=== PATIENT | female | born 2000 | race Caucasian/White ===

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

== ENCOUNTER 2023-12-06 07:34 | Inpatient (IN) ==
[2023-12-06] MEDS ORDERED: LIDOCAINE 1% LOCAL 20 ML VIAL INFIL PRN (08:05)
[2023-12-06] MEDS ORDERED: OXYTOCIN 30 UNITS/NSS 30 UNITS/500 ML BAG IV PRN (08:05)
--- NOTE | 2023-12-06 08:24 | History & Physical Report ---
Date of Service December 06, 2023 Assessment & Plan (1) 40 weeks gestation of : Plan: Admit, routine labs Misoprostol 50 mcg p.o. every 4 hours Epidural if patient request Anticipate spontaneous vaginal delivery (2) Gestational hypertension: Plan: Based on elevated blood pressure of 140/86 on 11/15/2023 at clinic Admission blood pressure 140/89 PIH labs pending (3) Hepatitis C antibody test positive: Plan: Repeat repeat testing to be performed today, most likely false positive Patient agreeable Admission and Anticipated Discharge Date Admission Date: December 06, 2023 History of Present Illness Chief Complaint: IOL Primary Care Provider: Shawanda Moraes DO Patient is a pleasant 22-year-old -0-1-0 at 40 weeks and 3 days dated by LMP consistent with a 6-week ultrasound. Patient denies contractions, leaking of fluid or vaginal bleeding. Notes good movement. Denies signs or symptoms of preeclampsia. Patient's course has been complicated by with an IUD in which the IUD was removed at early gestation, elevated blood pressure at 37 weeks, hepatitis C antibody positive. Patient denies any history of STDs, asthma, diabetes, high blood pressure outside of . Patient has not had excessive weight gain this (61 lbs) Allergies Allergy/AdvReac Type Severity Reaction Status Date / Time Sulfa (Sulfonamide Allergy Severe Hives Verified 12/06/23 08:03 Antibiotics) nickel AdvReac Intermediate Itching Verified 12/06/23 08:03 Home Medications Medication Instructions Recorded Confirmed Type Pepcid 1 tab PO BID 12/06/23 12/06/23 History 1 tab PO DAILY 12/06/23 12/06/23 History Patient History Medical History Remove/insert IUD UTI (urinary tract infection) Acute pharyngitis OB History NEW ORDER CLERK History Denies any history of STDs including HSV Physical Exam Constitutional: WD/WN, vitals as above Respiratory: normal respiratory effort, lungs clear to auscultation Cardiovascular: RRR, no murmur, no edema Gastrointestinal (Abdomen): normal bowel sounds, soft, nontender, no hepatosplenomegaly Cephalic by Luis's, estimated weight 3500 Genitourinary: External genitalia: No masses or lesions seen Cervix: 0/0/-3 Results & Data Vital Signs (Past 12 Hours) Vital Signs Pulse BP 12/06/23 07:47 126 H 140/89 Monitoring External Monitor heart tracing: Baseline 130, moderate variability, positive accelerations no decelerations Tocodynamometer No contract (2) Gestational hypertension Trimester: third trimester Qualified Code(s): O13.3 - Gestational [- induced] hypertension without significant proteinuria, third trimester
[2023-12-06] MEDS: miSOPROStoL 50 MCG TAB PO SCH (08:51)
[2023-12-06 08:53] LABS: Hematocrit (blood only) 42.3 % (37.0-47.0); Hemoglobin 14.7 g/dl (12.0-16.0); Mean Corpuscular Hemoglobin 30.4 pg (25.0-34.0); Mean Corpuscular Hgb Conc 34.8 g/dL (32.0-36.0); Mean Corpuscular Volume 87.4 fL (80.0-100.0); Mean Platelet Volume 11.6 fL (9.4-12.4); Platelet Count 244 K/uL (130-400); RDW Coefficient of Variation 13.9 % (11.5-14.5); Red Blood Count 4.84 M/uL (4.20-5.40); White Blood Count 15.56 K/ul (4.8-10.8)
[2023-12-06 09:10] LABS: Alanine Aminotransferase 11 U/L (7-52); Albumin Globulin Ratio 1.2 (0.9-2); Albumin Level 3.6 gm/dl (3.4-5.0); Alkaline Phosphatase 166 U/L (34-104); Anion Gap 8 (3-11); Aspartate Aminotransferase 15 U/L (13-39); BUN Creatinine Ratio 17.4 (10-20); Bilirubin,Total 0.4 mg/dl (0.2-1.0); Blood Urea Nitrogen 8 mg/dl (6-23); Calcium 9.4 mg/dl (8.6-10.3); Carbon Dioxide 19 mmol/L (21-32); Chloride 106 mmol/L (98-107); Est GFR (African American) > 150.0 ml/min; Est GFR (Non-African American) 140.2 ml/min; Globulin 2.9 gm/dl (2.5-4.0); Glucose 67 mg/dl (70-99(Fasting)); Potassium 3.9 mmol/L (3.5-5.1); Sodium 133 mmol/L (136-145); Total Protein 6.5 gm/dl (6.0-8.3)
[2023-12-06 09:25] LABS: Creatinine Urine Random 38.1 mg/dl; Protein Creatinine Ratio Urine 0.1 (0-0.2); Total Protein Urine Random 4.4 mg/dl (0-11.9)
--- OUTSIDE RECORDS SUMMARY | 2023-12-06 10:49 | External Medical Summary | Summary of Care ---
Author Name Unknown Organization [facility] Address [address] [facility] [place] [address] Phone [phone] Care Team Providers Care Property Inspector Name Role Phone Shawanda Moraes Primary Care Provider Encounter Details Date Type Department Care Team (Late st Contact Info) Description 11/08/2023 8:15 AM EDT Office Visit Gynecology/Obstetric s [facility] [address] [place] [address] Yoana Clement CRNP [address] [place] [phone] High-risk in third trimester*; Vapes nicotine containing substance; IUD ; Hepatitis C antibody test positive Allergies Active Allergy Reactions Criticality Noted Date Comments Nickel 10/13/2020 Skin turns blue, blisters Sulfa Antibiotics 05/19/2023 Other Reaction(s): Hives Sulfamethoxazole-Trimethopri m 05/19/2023 Other Reaction(s): Facial swelling and hives documented as of this encounter (statuses as of 11/08/2023) Medications Medication Sig Dispensed Refills Start Date End Date Status Plus 27-1 MG Oral TabletIndications:IUD Take 1 Tablet by mouth daily. 90 Tablet 3 04/12/2023 Active documented as of this encounter (statuses as of 11/08/2023) Active Problems Problem Noted Date Diagnosed Date Hepatitis C antibody test positive 05/24/2023 Overview: Neg viral load 05/24/23 Vapes nicotine containing substance 05/23/2023 High-risk 05/23/2023 IUD 05/23/2023 Overview: IUD removed at 6 wks GA PTSD (post-traumatic stress disorder) 09/19/2020 Overview: Post abortive (2018) PTSD Estimated Date of Delivery Comme nts Yes 12/03/2023 Based on last me nstrual period of 02/26/2023 documented as of this encounter (statuses as of 11/08/2023) Resolved Problems Problem Noted Date Diagnosed Date Resolved Date Family history of thalassemia 05/23/2023 05/23/2023 Overview: FOB's mother documented as of this encounter (statuses as of 11/08/2023) Immunizations Name Administration Dates Next Due TDAP (age 10 and older)(Boostrix) 09/27/2023 documented as of this encounter Social History Tobacco Use Types Packs/Day Years Used Date Smoking Tobacco: Every Day Vaporizer Smokeless Tobacco: Never Alcohol Use Standard Drinks/Week Comments Yes 0 (1 standard drink = 0.6 oz pur e alcohol) Hunger Vital Sign Answer Date Recorded Within the past 12 months, y ou worried that your food would run out before you got the money to buy more. Never true 07/07/20 23 Within the past 12 months, t he food you bought just didn't last and you didn't have money to get more. Never true 07/07/2023 [place] Depression Scale Answer Date Recorded [place] Depression Scale Total 0 11/01/2023 The thought of harming myself has occurred to me . Never 11/01/2023 Estimated Date of Delivery Comme nts Yes 12/03/2023 Based on last me nstrual period of 02/26/2023 Sex and Gender Information Value Date Recorded Sex Assigned at Female 05/23/2023 10:15 AM EDT Gender Identity Female 05/23/2023 10:15 AM EDT Sexual Orientation Straight 05/23/2023 10 :15 AM EDT Job Start Date Occupation Industry Not on file Not on file Not on file documented as of this encounter Last Filed Vital Signs Vital Sign Reading Time Taken Comments Blood Pressure 110/74 11/08/2023 8:21 AM EDT Pulse - - Temperature - - Respiratory Rate - - Oxygen Saturation - - Inhaled Oxygen Concentration - - Weight 99.8 kg (220 lb) 11/08/2023 8:21 AM EDT Height 160 cm (5' 3") 11/08/2023 8:21 AM EDT Body Mass Index 38.97 11/08/2023 8:21 AM EDT documented in this encounter Progress Notes * Yoana Clement CRNP - 11/08/2023 8:48 AM EDT 36w3d Having pelvic pain, pubic symphysis pain. Suggested chiropractor, exercise ball. No other issues. Baby is active. No contractions, bleeding, LOF. GBS today. Mercantile Reporter Documentation Provider requested chief controller center. Name of chief controller center: Izzy * Izzy Vail LPN - 11/08/2023 8:21 AM EDT 36w3d Needs gbs documented in this encounter Plan of Treatment Upcoming Encounters Date Type Department Care Team (Late st Contact Info) Description 11/15/2023 8:15 AM EDT Office Visit Gynecology/Obstetrics [facility] [address] [place] [address] Yoana Clement CRNP [address] [place] [address] 11/22/2023 8:15 AM EDT Office Visit Gynecology/Obstetrics [facility] [address] [place] [address] Yoana Clement CRNP [address] [place] [address] 11/29/2023 8:15 AM EDT Office Visit Gynecology/Obstetrics [facility] [address] [place] [address] Yoana Clement CRNP [address] [place] [phone] Pending Results Name Type Priority Associated Diagnoses Date /Time GROUP B STREP CULTURE/PCR Lab Routine High-risk in third trimester 11/08/2023 8:51 AM EDT Scheduled Orders Name Type Priority Associated Diagnoses Orde r Schedule GROUP B STREP CULTURE/PCR Lab Routine High-risk in third trimester Expected: 11/08/2023, Expires: 11/07/2024 Health Maintenance Due Date Last Done Comments Pneumococcal Vaccine: Pediat rics (0 to 5 Years) and At-Risk Patients (6 to 64 Years) (1 of 2 - PCV) 12/16/2005 Depression Screening 2011 GARDASIL-HPV IMMUNIZATION SE TIFFANY (1 - 3-dose series) 12/16/2014 COVID-19 Vaccine ( - 2022-2 4 season) 2023 Influenza Vaccine (FLU shot) (#1) 2023 Gonorrhea / Chlamydia Screen 05/23/2024 05/23/2023 Pap Smear 05/23/2026 05/23/2023 DTaP,Tdap,and Td Vaccines (8 - Td or Tdap) 09/27/2033 09/27/2023, 12/19/2013, 10/29/2004, Additional history exists Hepatitis B Completed 12/19/2000, 08/1999, 03/03/2000 MENINGOCOCCAL (MENACTRA/MENVEO) Completed 7, 12/19/2013 documented as of this encounter Medical Devices Implanted Type Area Hoop Maker Helper Machine Device Identifier Shelf Expiration Date Model / Serial / Lot Reta 13.5 Iud Implanted:Qt y: 1 on 10/16/2020 by Olayinka Acosta MD at OR [facility] N/A: Uterus DELICIA MARIA EUGENIA : [employer] 04/28/2021 [id number] / / [id number] documented as of this encounter Visit Diagnoses Diagnosis High-risk in third trimester- Primary Vapes nicotine containing substance IUD Other specified complication of , unspecified as to episode of care Hepatitis C antibody test positive Other and unspecified nonspecific immunological findings documented in this encounter Care Teams Property Inspector Relationship Specialty Start Date End Date Shawanda Moraes DO [address] [place] [id number] PCP - General Family Medicine 04/12/23 documented as of this encounter
--- OUTSIDE RECORDS SUMMARY | 2023-12-06 10:49 | External Medical Summary | Summary of Care ---
Author Name Unknown Organization [facility] Address [address] [facility] [place] [address] Phone [phone] Care Team Providers Care Cutter Woodwind Reeds Name Role Phone Shawanda Moraes Primary Care Provider Encounter Details Date Type Department Care Team (Late st Contact Info) Description 11/08/2023 8:15 AM EDT Office Visit Gynecology/Obstetric s [facility] [address] [place] [address] Yoana Clement CRNP [address] [place] [address] High-risk in third trimester*; Vapes nicotine containing [...] money to get more. Never true 07/07/2023 [place] Depression Scale Answer Date Recorded [place] Depression Scale Total 0 11/01/2023 The thought [...] active. No contractions, bleeding, LOF. GBS today. Lombardi Developer Documentation Provider requested stevedoring supervisor. Name of stevedoring supervisor: Izzy * Izzy Vail LPN - 11/08/2023 8:21 AM EDT 36w3d Needs gbs documented in this encounter Plan of Treatment Upcoming Encounters Date Type Department Care Team (Late st Contact Info) Description 11/15/2023 8:15 AM EDT Office Visit Gynecology/Obstetrics [facility] [address] [place] [address] Yoana Clement CRNP [address] [place] [address] 11/22/2023 8:15 AM EDT Office Visit Gynecology/Obstetrics [facility] [address] [place] [address] Yoana Clement CRNP [address] [place] [address] 11/29/2023 8:15 AM EDT Office Visit Gynecology/Obstetrics [facility] [address] [place] [address] Yoana Clement CRNP [address] [place] [address] Pending Results Name Type Priority Associated Diagnoses [...] this encounter Medical Devices Implanted Type Area Chute Builder Device Identifier Shelf Expiration Date Model / Serial / Lot Reta 13.5 Iud Implanted:Qt y: 1 on 10/16/2020 by Olayinka Acosta MD at OR [facility] N/A: Uterus DELICIA MARIA EUGENIA : [employer] 04/28/2021 [id number] / / [id number] documented as of this encounter Visit Diagnoses Diagnosis High-risk in third trimester- Primary Vapes nicotine containing substance IUD Other specified complication of , unspecified as to episode of care Hepatitis C antibody test positive Other and unspecified nonspecific immunological findings documented in this encounter Care Teams Cutter Woodwind Reeds Relationship Specialty Start Date End Date Shawanda Moraes DO [address] [place] [id number] PCP - General Family Medicine 04/12/23 documented as of this encounter
--- OUTSIDE RECORDS SUMMARY | 2023-12-06 10:49 | External Medical Summary | Summary of Care ---
Author Name Unknown Organization [facility] Address [address] [facility] [place] [address] Phone [phone] Care Team Providers Care Molded Goods Embossing Press Operator Name Role Phone Shawanda Moraes Primary Care Provider Reason for Visit * Reason Comments Blood Pressure Check Encounter Details Date Type Department Care Team (Late st Contact Info) Description 11/17/2023 11:00 AM EDT Immunization/Inj ection Gynecology/Obstetrics [facility] [address] [place] [address] Gw, Nurse Obgyn Injection [address] [facility] [place] [address] BP check* Allergies Active Allergy Reactions Criticality Noted Date Comments Nickel 10/13/2020 Skin turns blue, blisters Sulfa Antibiotics 05/19/2023 Other Reaction(s): Hives Sulfamethoxazole-Trimethopri m 05/19/2023 Other Reaction(s): Facial swelling and hives documented as of this encounter (statuses as of 11/17/2023) Medications Medication Sig Dispensed Refills Start Date End Date Status Plus 27-1 MG Oral TabletIndications:IUD Take 1 Tablet by mouth daily. 90 Tablet 3 04/12/2023 Active documented as of this encounter (statuses as of 11/17/2023) Active Problems Problem Noted Date Diagnosed Date [...] as of this encounter (statuses as of 11/17/2023) Resolved Problems Problem Noted Date Diagnosed Date Resolved Date Family history of thalassemia 05/23/2023 05/23/2023 Overview: FOB's mother documented as of this encounter (statuses as of 11/17/2023) Immunizations Name Administration Dates Next Due TDAP (age 10 and older)(Boostrix) 09/27/2023 documented as of this encounter Social History Tobacco Use Types Packs/Day Years Used Date Smoking Tobacco: Every Day Vaporizer Smokeless Tobacco: Never Tobacco Cessation:Ready to Q uit: Not Asked; Counseling Given: Not Answered Alcohol Use Standard Drinks/Week Comments Yes 0 [...] money to get more. Never true 07/07/2023 [place] Depression Scale Answer Date Recorded [place] Depression Scale Total 0 11/01/2023 The thought [...] Sign Reading Time Taken Comments Blood Pressure 118/72 11/17/2023 11:19 AM EDT Pulse - - Temperature - - Respiratory Rate - - Oxygen Saturation - - Inhaled Oxygen Concentration - - Weight - - Height - - Body Mass Index - - documented in this encounter Nursing Notes * Katharina Canales LPN - 11/17/2023 11:16 AM EDT Pt here today for BP check. BP taken by Liss Magana MA. I spoke with pt who denies any new onset of LÓPEZ, vision changes, unexplained swelling. + movement. Urine dip completed which was negative for protein. Advised pt to call with any onset of new symptoms, decreased movement, and will repeat BP next week at JACQUELIN visit. Pt verbalized understanding. Pt also dropping off FMLA paperwork. She is requesting it be faxed to number on forms and she will pickle water pump operator copy when she comes in next week. documented in this encounter Plan of Treatment Upcoming Encounters Date Type Department Care Team (Late st Contact Info) Description 11/22/2023 8:15 AM EDT Office Visit Gynecology/Obstetrics [facility] [address] [place] [address] Yoana Clement CRNP [address] [place] [phone] 11/29/2023 8:15 AM EDT Office Visit Gynecology/Obstetrics [facility] [address] [place] [address] Yoana Clement CRNP [address] [place] [address] Health Maintenance Due Date Last Done Comments Pneumococcal Vaccine: Pediat rics (0 to 5 Years) and At-Risk Patients (6 to 64 Years) (1 of 2 - PCV) 12/16/2005 Depression Screening 2011 GARDASIL-HPV IMMUNIZATION SE TIFFANY (1 - 3-dose series) 12/16/2014 COVID-19 Vaccine (1 - 2022-2 4 season) 2023 Influenza Vaccine (FLU shot) (#1) 2023 Gonorrhea / Chlamydia Screen 05/23/2024 05/23/2023 Pap Smear 05/23/2026 05/23/2023 DTaP,Tdap,and Td Vaccines (8 - Td or Tdap) 09/27/2033 09/27/2023, 12/19/2013, 10/29/2004, Additional history exists Hepatitis B Completed 12/19/2000, 08/1999, 03/03/2000 MENINGOCOCCAL (MENACTRA/MENVEO) Completed 7, 12/19/2013 documented as of this encounter Medical Devices Implanted Type Area Back Facer Device Identifier Shelf Expiration Date Model / Serial / Lot Reta 13.5 Iud Implanted:Qt y: 1 on 10/16/2020 by Olayinka Acosta MD at OR [facility] N/A: Uterus DELICIA MARIA EUGENIA : [employer] 04/28/2021 [id number] / / [id number] documented as of this encounter Procedures Procedure Name Priority Date/Time Associated Diagnosis Comments URINALYSIS, POINT OF CARE (ENTER/EDIT) Routine 11/17/2023 BP check documented in this encounter Results * URINALYSIS, POINT OF CARE (ENTER/EDIT) (11/17/2023) Color, Urine Yellow Yellow or Light Yellow Clarity, Urine Clear Clear Glucose, Urine Negative Negative mg/dL Bilirubin, Urine Negative Negative Ketone, Urine Negative Negative mg/dL Specific [place], Urine 1.020 1.003 - 1.030 Blood, Urine Negative Negative pH, Urine 7.0 5.0 - 7.5 units Protein, Urine Negative Negative mg/dL Urobilinogen, Urine 0.2 0.2 - 1.0 mg/dL Nitrite, Urine Negative Negative Esterase, Urine Large Negative Urine 11/17/2023 Olayinka Acosta MD LAB POINT OF CARE TE ST ENTER/EDIT ORDERABLES documented in this encounter Visit Diagnoses Diagnosis BP check- Primary Screening for hypertension documented in this encounter Care Teams Molded Goods Embossing Press Operator Relationship Specialty Start Date End Date Shawanda Moraes DO [address] [place] [address] Dr [address] [place] [address], [place] [address] PCP - General Family Medicine 04/12/23 documented as of this encounter
--- OUTSIDE RECORDS SUMMARY | 2023-12-06 10:49 | External Medical Summary ---
Author Name Unknown Address Unknown Organization [id number][place] [facility] [place] [address] [place] [address] Laboratory Report Ordering Provider Test Date Status BASSAMNICOLAS 11/15/2023 08:42:53 Final Normal: <150 mg/ g creatinine
High: 150-500 mg/g creatinine
Very High: >500 mg/g creatinine
Nephrotic: >3000 mg/g creatinine Observation Date Value Abnormality Reference (Units ) Status Protein/Creatinine [Ratio] in Urine 11/15/2023 08:42:53 115 <150 (mg/g ) Final Protein, Urine 11/15/2023 08:42:53 9 (mg/dL) Final Creatinine, Urine 11/15/2023 08:42:53 78 (mg/dL) Final Performing Location [facility] [place] [address] [place] [address]
--- OUTSIDE RECORDS SUMMARY | 2023-12-06 10:49 | External Medical Summary | Summary of Care ---
Author Name Unknown Organization [facility] Address [address] [facility] [place] [address] Phone [phone] Care Team Providers Care Project Management Manager Name Role Phone Shawanda Moraes Primary Care Provider Reason for Visit * Reason Comments Return Visit Encounter Details Date Type Department Care Team (Late st Contact Info) Description 11/15/2023 8:15 AM EDT Office Visit Gynecology/Obstetric s [facility] [address] [place] [address] Yoana Clement CRNP [address] [place] [address] High-risk in third trimester*; Vapes nicotine containing substance; IUD ; Hepatitis C antibody test positive Allergies Active Allergy Reactions Criticality Noted Date Comments Nickel 10/13/2020 Skin turns blue, blisters Sulfa Antibiotics 05/19/2023 Other Reaction(s): Hives Sulfamethoxazole-Trimethopri m 05/19/2023 Other Reaction(s): Facial swelling and hives documented as of this encounter (statuses as of 11/15/2023) Medications Medication Sig Dispensed Refills Start Date End Date Status Plus 27-1 MG Oral TabletIndications:IUD Take 1 Tablet by mouth daily. 90 Tablet 3 04/12/2023 Active documented as of this encounter (statuses as of 11/15/2023) Active Problems Problem Noted Date Diagnosed Date [...] as of this encounter (statuses as of 11/15/2023) Resolved Problems Problem Noted Date Diagnosed Date Resolved Date Family history of thalassemia 05/23/2023 05/23/2023 Overview: FOB's mother documented as of this encounter (statuses as of 11/15/2023) Immunizations Name Administration Dates Next Due TDAP [...] money to get more. Never true 07/07/2023 [place] Depression Scale Answer Date Recorded [place] Depression Scale Total 0 11/01/2023 The thought [...] Sign Reading Time Taken Comments Blood Pressure 140/86 11/15/2023 8:11 AM EDT 138/86 10 mins later Pulse - - Temperature - - Respiratory Rate - - Oxygen Saturation - - Inhaled Oxygen Concentration - - Weight 101.2 kg (223 lb) 11/15/2023 8:1 1 AM EDT Height 160 cm (5' 3") 11/15/2023 8:11 AM EDT Body Mass Index 39.5 11/15/2023 8:11 AM EDT documented in this encounter Progress Notes * Yaona Clement CRNP - 11/15/2023 8:37 AM EDT 37w3d BLE edema continues. Wore knee high compression stockings and got swelling behind her knee. Wore crew-length compression socks and had significant swelling above this, up her simmons. Explained that thelower the stocking, the more swelling she will notice. BP mildly elevated today, repeat minimally improved. Trace proteinuria. Will send protein/creat ratio. Return in 2 days for BP check. Baby is active. No contractions, bleeding, LOF. Asking for IOL, scheduled for after 40w. SHOAIB [place] * Izzy Vail LPN - 11/15/2023 8:11 AM EDT 37w3d LE swelling Has been using compression hoses seems to make everything worse documented in this encounter Plan of Treatment Upcoming Encounters Date Type Department Care Team (Late st Contact Info) Description 11/17/2023 11:00 AM EDT Immunization/Injec tion Gynecology/Obstetrics [facility] [address] [place] [address] Gw, Nurse Obgyn Injection [address] [place] [address] 11/22/2023 8:15 AM EDT Office Visit Gynecology/Obstetrics [facility] [address] [place] [address] Yoana Clement CRNP [address] [place] [address] 11/29/2023 8:15 AM EDT Office Visit Gynecology/Obstetrics [facility] [address] [place] [address] Yoana Clement CRNP [address] [place] [address] Pending Results Name Type Priority Associated Diagnoses Date /Time PROTEIN/ CREATININE RATIO, URINE Lab Routine High-risk in third trimester 11/15/2023 8:42 AM EDT Health Maintenance Due Date Last Done Comments Pneumococcal Vaccine: Pediat rics (0 to 5 Years) and At-Risk Patients (6 to 64 Years) (1 of 2 - PCV) 12/16/2005 Depression Screening 2011 GARDASIL-HPV IMMUNIZATION SE TIFFANY (1 - 3-dose series) 12/16/2014 COVID-19 Vaccine (2022-2 4 season) 2023 Influenza Vaccine (FLU shot) (#1) 2023 Gonorrhea / Chlamydia Screen 05/23/2024 05/23/2023 Pap Smear 05/23/2026 05/23/2023 DTaP,Tdap,and Td Vaccines (8 - Td or Tdap) 09/27/2033 09/27/2023, 12/19/2013, 10/29/2004, Additional history exists Hepatitis B Completed 12/19/2000, 08/1999, 03/03/2000 MENINGOCOCCAL (MENACTRA/MENVEO) Completed 7, 12/19/2013 documented as of this encounter Medical Devices Implanted Type Area Ruby On Rails Software Developer Device Identifier Shelf Expiration Date Model / Serial / Lot Reta 13.5 Iud Implanted:Qt y: 1 on 10/16/2020 by Olayinka Acosta MD at OR [facility] N/A: Uterus DELICIA MARIA EUGENIA : [employer] 04/28/2021 [id number] / / [id number] documented as of this encounter Visit Diagnoses Diagnosis High-risk in third trimester- Primary Vapes nicotine containing substance IUD Other specified complication of , unspecified as to episode of care Hepatitis C antibody test positive Other and unspecified nonspecific immunological findings documented in this encounter Care Teams Project Management Manager Relationship Specialty Start Date End Date Shawanda Moraes DO [address] [place] [address] [place] [address] PCP - General Family Medicine 04/12/23 documented as of this encounter
--- OUTSIDE RECORDS SUMMARY | 2023-12-06 10:49 | External Medical Summary | Summary of Care ---
Author Name Unknown Organization [facility] Address [address] [facility] [place] [address] Phone [phone] Care Team Providers Care Manometer Technician Name Role Phone Shawanda Moraes Primary Care Provider Reason for Visit * Reason Comments Return Visit Encounter Details Date Type Department Care Team (Late st Contact Info) Description 11/22/2023 8:15 AM EDT Office Visit Gynecology/Obstetric s [facility] [address] [facility] [place] [address] Yoana Clement CRNP [address] [facility] [place] [address] High-risk in third trimester*; Vapes nicotine containing substance; IUD ; Hepatitis C antibody test positive Allergies Active Allergy Reactions Criticality Noted Date Comments Nickel 10/13/2020 Skin turns blue, blisters Sulfa Antibiotics 05/19/2023 Other Reaction(s): Hives Sulfamethoxazole-Trimethopri m 05/19/2023 Other Reaction(s): Facial swelling and hives documented as of this encounter (statuses as of 11/22/2023) Medications Medication Sig Dispensed Refills Start Date End Date Status Plus 27-1 MG Oral TabletIndications:IUD Take 1 Tablet by mouth daily. 90 Tablet 3 04/12/2023 Active documented as of this encounter (statuses as of 11/22/2023) Active Problems Problem Noted Date Diagnosed Date [...] as of this encounter (statuses as of 11/22/2023) Resolved Problems Problem Noted Date Diagnosed Date Resolved Date Family history of thalassemia 05/23/2023 05/23/2023 Overview: FOB's mother documented as of this encounter (statuses as of 11/22/2023) Immunizations Name Administration Dates Next Due TDAP [...] money to get more. Never true 07/07/2023 [place] Depression Scale Answer Date Recorded [place] Depression Scale Total 0 11/01/2023 The thought [...] Sign Reading Time Taken Comments Blood Pressure 132/78 11/22/2023 8:04 AM EDT Pulse - - Temperature - - Respiratory Rate - - Oxygen Saturation - - Inhaled Oxygen Concentration - - Weight 101.2 kg (223 lb) 11/22/2023 8:04 AM EDT Height 160 cm (5' 3") 11/22/2023 8:04 AM EDT Body Mass Index 39.5 11/22/2023 8:04 AM EDT documented in this encounter Progress Notes * Yoana Clement CRNP - 11/22/2023 8:32 AM EDT 38w3d Still swollen, though not necessarily worse than last week. Weight stable. BP is fine. Baby is active. Had some cramping yesterday, but not any contractions. Denies bleeding. IOL scheduled for 12/05. SHOAIB Monroy documented in this encounter Nursing Notes * Shauna Kruse LPN - 11/22/2023 8:08 AM EDT 38w3d Denies concerns documented in this encounter Plan of Treatment Upcoming Encounters Date Type Department Care Team (Late st Contact Info) Description 11/29/2023 8:15 AM EDT Office Visit Gynecology/Obstetrics [facility] [address] [place] [address] Yoana Clement CRNP [address] [place] [address] Health Maintenance Due Date Last Done Comments [...] Completed 12/19/2000, 08/1999, 03/03/2000 MENINGOCOCCAL (MENACTRA/MENVEO) Completed , 12/19/2013 documented as of this encounter Medical Devices Implanted Type Area Heading Pinner Device Identifier Shelf Expiration Date Model / Serial / Lot Reta 13.5 Iud Implanted:Qt y: 1 on 10/16/2020 by Olayinka Acosta MD at OR [facility] N/A: Uterus DELICIA MARIA EUGENIA : [employer] 04/28/2021 [id number] / / [id number] documented as of this encounter Visit Diagnoses Diagnosis High-risk in third trimester- Primary Vapes nicotine containing substance IUD Other specified complication of , unspecified as to episode of care Hepatitis C antibody test positive Other and unspecified nonspecific immunological findings documented in this encounter Care Teams Manometer Technician Relationship Specialty Start Date End Date Shawanda Moraes DO [address] [facility] [address] [place] [address], [place] [address] PCP - General Family Medicine 04/12/23 documented as of this encounter
--- OUTSIDE RECORDS SUMMARY | 2023-12-06 10:49 | External Medical Summary ---
Author Name Unknown Address Unknown Organization K01:[facility] [place] [address] [place] [address] [place] [address] Laboratory Report Ordering Provider Test Date Status NICOLAS BANEGAS 11/08/2023 08:51:49 Final Observation Date Value Abnormality Reference (Units ) Status Streptococcus agalactiae DNA [Presence] in Specimen by TRENT with probe detection 11/08/2023 08:51:49 Negative Negative Final No Group B Streptococcus det ected by culture-enhanced PCR (amplified probe).
The collection of vaginal/rectal swab specimen combinations (FDA approved specimen type) is optimal for the detection of Group B Streptococcus. Single source collection (vaginal only or rectal only) or alternate specimen sources may lead to false negative results. Performing Location [facility] [place] [address] [place] [address]
--- OUTSIDE RECORDS SUMMARY | 2023-12-06 10:49 | External Medical Summary | Summary of Care ---
Author Name Unknown Organization [facility] Address [address] [facility] [place] [address] Phone [phone] Care Team Providers Care Tinware Lithograph Press Operator Name Role Phone Shawanda Moraes Primary Care Provider Reason for Visit * Reason Comments Return Visit Encounter Details Date Type Department Care Team (Late st Contact Info) Description 11/29/2023 8:15 AM EDT Office Visit Gynecology/Obstetric s [facility] [address] [place] [address] Yoana Clement CRNP [address] [facility] [place] [address] High-risk in third trimester*; Vapes nicotine containing substance; IUD ; Hepatitis C antibody test positive Allergies Active Allergy Reactions Criticality Noted Date Comments Nickel 10/13/2020 Skin turns blue, blisters Sulfa Antibiotics 05/19/2023 Other Reaction(s): Hives Sulfamethoxazole-Trimethopri m 05/19/2023 Other Reaction(s): Facial swelling and hives documented as of this encounter (statuses as of 11/29/2023) Medications Medication Sig Dispensed Refills Start Date End Date Status Plus 27-1 MG Oral TabletIndications:IUD Take 1 Tablet by mouth daily. 90 Tablet 3 04/12/2023 Active documented as of this encounter (statuses as of 11/29/2023) Active Problems Problem Noted Date Diagnosed Date [...] as of this encounter (statuses as of 11/29/2023) Resolved Problems Problem Noted Date Diagnosed Date Resolved Date Family history of thalassemia 05/23/2023 05/23/2023 Overview: FOB's mother documented as of this encounter (statuses as of 11/29/2023) Immunizations Name Administration Dates Next Due TDAP [...] money to get more. Never true 07/07/2023 [place] Depression Scale Answer Date Recorded [place] Depression Scale Total 0 11/01/2023 The thought [...] Sign Reading Time Taken Comments Blood Pressure 132/76 11/29/2023 8:04 AM EDT Pulse - - Temperature - - Respiratory Rate - - Oxygen Saturation - - Inhaled Oxygen Concentration - - Weight 102.5 kg (226 lb) 11/29/2023 8:04 AM EDT Height 160 cm (5' 3") 11/29/2023 8:04 AM EDT Body Mass Index 40.03 11/29/2023 8:04 AM EDT documented in this encounter Progress Notes * Yoana Clement CRNP - 11/29/2023 8:35 AM EDT 39w3d No new concerns. Very uncomfortable. Swelling continues. Baby is active, though mostly overnight. Discussed/encouraged kick counts. No contractions, bleeding, LOF. IOL 12/05 Chin Strap Maker Documentation Provider requested transitional nurse. Name of transitional nurse: SHOAIB Camargo documented in this encounter Nursing Notes * Shauna Kruse LPN - 11/29/2023 8:10 AM EDT 39w3d Denies concerns Membrane sweep if able. documented in this encounter Plan of Treatment Health Maintenance Due Date Last Done Comments Pneumococcal Vaccine: Pediat rics (0 to 5 Years) and At-Risk Patients (6 to 64 Years) (1 of 2 - PCV) 12/16/2005 Depression Screening 2011 GARDASIL-HPV IMMUNIZATION SE TIFFANY (1 - 3-dose series) 12/16/2014 COVID-19 Vaccine (2022-2 4 season) 2023 Influenza Vaccine (FLU shot) (Season Ended) 2024 Gonorrhea / Chlamydia Screen 05/23/2024 05/23/2023 Pap Smear 05/23/2026 05/23/2023 DTaP,Tdap,and Td Vaccines (8 - Td or Tdap) 09/27/2033 09/27/2023, 12/19/2013, 10/29/2004, Additional history exists Hepatitis B Completed 12/19/2000, 08/1999, 03/03/2000 MENINGOCOCCAL (MENACTRA/MENVEO) Completed 7, 12/19/2013 documented as of this encounter Medical Devices Implanted Type Area Group Leader Semiconductor Processing Device Identifier Shelf Expiration Date Model / Serial / Lot Reta 13.5 Iud Implanted:Qt y: 1 on 10/16/2020 by Olayinka Acosta MD at OR [facility] N/A: Uterus DELICIA MARIA EUGENIA : [employer] 04/28/2021 [id number] / / [id number] documented as of this encounter Visit Diagnoses Diagnosis High-risk in third trimester- Primary Vapes nicotine containing substance IUD Other specified complication of , unspecified as to episode of care Hepatitis C antibody test positive Other and unspecified nonspecific immunological findings documented in this encounter Care Teams Tinware Lithograph Press Operator Relationship Specialty Start Date End Date Shawanda Moraes DO 6 [facility] [address] [place] [address] PCP - General Family Medicine 04/12/23 documented as of this encounter
--- OUTSIDE RECORDS SUMMARY | 2023-12-06 10:50 | External Medical Summary | Summary of Care ---
Author Name Unknown Organization [facility] Address [address] [facility] [place] [address] Phone [phone] Care Team Providers Care Firer Watertender Name Role Phone Shawanda Moraes Primary Care Provider Reason for Visit * Reason Comments Return Visit Encounter Details Date Type Department Care Team (Late st Contact Info) Description 10/19/2023 10:30 AM EST Office Visit Gynecology/Obstetric s [facility] [address] [place] [address] Yoana Clement CRNP [address] [place] [address] High-risk in third trimester*; Vapes nicotine containing substance; IUD ; Hepatitis C antibody test positive Allergies Active Allergy Reactions Criticality Noted Date Comments Nickel 10/13/2020 Skin turns blue, blisters Sulfa Antibiotics 05/19/2023 Other Reaction(s): Hives Sulfamethoxazole-Trimethopri m 05/19/2023 Other Reaction(s): Facial swelling and hives documented as of this encounter (statuses as of 10/19/2023) Medications Medication Sig Dispensed Refills Start Date End Date Status Plus 27-1 MG Oral TabletIndications:IUD Take 1 Tablet by mouth daily. 90 Tablet 3 04/12/2023 Active documented as of this encounter (statuses as of 10/19/2023) Active Problems Problem Noted Date Diagnosed Date [...] as of this encounter (statuses as of 10/19/2023) Resolved Problems Problem Noted Date Diagnosed Date Resolved Date Family history of thalassemia 05/23/2023 05/23/2023 Overview: FOB's mother documented as of this encounter (statuses as of 10/19/2023) Immunizations Name Administration Dates Next Due TDAP [...] money to get more. Never true 07/07/2023 [place] Depression Scale Answer Date Recorded [place] Depression Scale Total 0 05/23/2023 The thought of harming myself has occurred to me . Never 05/23/2023 Estimated Date of Delivery Comme nts Yes [...] Sign Reading Time Taken Comments Blood Pressure 118/76 10/19/2023 10:30 AM EST Pulse - - Temperature - - Respiratory Rate - - Oxygen Saturation - - Inhaled Oxygen Concentration - - Weight 95.3 kg (210 lb) 10/19/2023 10:30 AM EST Height 160 cm (5' 3") 10/19/2023 10:30 AM EST Body Mass Index 37.2 10/19/2023 10:30 AM EST documented in this encounter Progress Notes * Yoana Clement CRNP - 10/19/2023 10:51 AM EST 33w4d Feeling well overall. Numbness/tingling in hands. Itching has resolved, bile acids WNL. Baby is active, discussed changes in movement. Denies contractions or bleeding. Baby feels transverse by Leopolds. SHOAIB Mon[place] * Izzy Vail LPN - 10/19/2023 10:30 AM EST 33w4d Denies any concerns documented in this encounter Plan of Treatment Upcoming Encounters Date Type Department Care Team (Late st Contact Info) Description 11/01/2023 8:30 AM EST [facility] [address] [place] [address] ManfrederAgnes CRNP [address] [place] [address] 11/08/2023 8:15 AM EDT Office Visit Gynecology/Obstetrics [facility] [address] [place] [address] Yoana Clement CRNP [address] [place] [address] 11/15/2023 8:15 AM EDT Office Visit Gynecology/Obstetrics [facility] [address] [place] [address] Yoana Clement CRNP [address] [place] [address] 11/22/2023 8:15 AM EDT Office Visit Gynecology/Obstetrics [facility] [address] [place] [address] Yoana Clement CRNP [address] [place] [address] 11/29/2023 8:15 AM EDT Office Visit Gynecology/Obstetrics [facility] [address] [place], [place] [address] Yoana Clement CRNP [address] [place] [address] Health Maintenance Due Date Last Done Comments [...] this encounter Medical Devices Implanted Type Area Casino Host Device Identifier Shelf Expiration Date Model / Serial / Lot Reta 13.5 Iud Implanted:Qt y: 1 on 10/16/2020 by Olayinka Acosta MD at OR [facility] N/A: Uterus DELICIA MARIA EUGENIA : [employer] 04/28/2021 [id number] / / [id number] documented as of this encounter Visit Diagnoses Diagnosis High-risk in third trimester- Primary Vapes nicotine containing substance IUD Other specified complication of , unspecified as to episode of care Hepatitis C antibody test positive Other and unspecified nonspecific immunological findings documented in this encounter Care Teams Firer Watertender Relationship Specialty Start Date End Date Shawanda Moraes DO 6 [facility] [address], [place] [address] PCP - General Family Medicine 04/12/23 documented as of this encounter
--- OUTSIDE RECORDS SUMMARY | 2023-12-06 10:50 | External Medical Summary ---
Author Name Unknown Address Unknown Organization : Laboratory Report Ordering Provider Test Date Status CLEO BANEGASSAAD 10/05/2023 15:16:01 Final Observation Date Value Abnormality Reference (Units ) Status Bile acid [Moles/volume] in Serum --fasting 10/05/2023 15:16:01 SEE BELOW Final TESTS--------- ----RESULTS--------UNITS--REF. RANGE---
Cholic Acid <0.5 umol/L < OR = 1.8
Deoxycholic Acid <0.5 umol/L < OR = 2.4
Chenodeoxycholic Acid 0.7 umol/L < OR = 3.1
Total Bile Acids <1.5 umol/L < OR = 6.8
This test was developed and its analytical
performance characteristics have been determined
by [facility]. It has not been cleared or
approved by FDA. This assay has been validated
pursuant to the CLIA regulations and is used for
clinical purposes.
Test performed by [facility]
[id number],
[place] [address]

Parts Sales Counterperson: Gill Sandoval MD,PHD,JAYANT Performing Location
--- OUTSIDE RECORDS SUMMARY | 2023-12-06 10:50 | External Medical Summary | Summary of Care ---
Author Name Unknown Organization [facility] Address [address] [facility] [address] Phone [phone] Care Team Providers Care Umbrella Supervisor Name Role Phone EduarShawanda howard Primary Care Provider Encounter Details Date Type Department Care Team (Late st Contact Info) Description 09/27/2023 Telephone Gynecology/Obstetrics [facility] Re[facility] [address] [place] [address] Yoana Clement CRNP [address] [place] [address] Allergies Active Allergy Reactions Criticality Noted Date Comments Nickel 10/13/2020 Skin turns blue, blisters Sulfa Antibiotics 05/19/2023 Other Reaction(s): Hives Sulfamethoxazole-Trimethopri m 05/19/2023 Other Reaction(s): Facial swelling and hives documented as of this encounter (statuses as of 09/30/2023) Medications Medication Sig Dispensed Refills Start Date End Date Status Plus 27-1 MG Oral TabletIndications:IUD Take 1 Tablet by mouth daily. 90 Tablet 3 04/12/2023 Active documented as of this encounter (statuses as of 09/30/2023) Active Problems Problem Noted Date Diagnosed Date [...] as of this encounter (statuses as of 09/30/2023) Resolved Problems Problem Noted Date Diagnosed Date Resolved Date Family history of thalassemia 05/23/2023 05/23/2023 Overview: FOB's mother documented as of this encounter (statuses as of 09/30/2023) Immunizations Name Administration Dates Next Due TDAP [...] money to get more. Never true 07/07/2023 [place] Depression Scale Answer Date Recorded [place] Depression Scale Total 0 05/23/2023 The thought [...] on file documented as of this encounter Miscellaneous Notes * Telephone Encounter - Marisol Ashley OSA - 09/30/2023 11:01 AM EST Pt scheduled, wants to keep both appt at this time to decide which one she wants to keep then will call back * Telephone Encounter - Elisa Vicente RN - 09/29/2023 3:14 PM EST Marisol- can you look into this and see if you can get her a spot? * Telephone Encounter - Bhavani Barreto LPN - 09/29/2023 3:10 PM EST [place] pt. Bhavani Barreto LPN 09/29/2023 3:10 PM * Telephone Encounter - Jagruti Barrios OSA - 09/27/2023 11:33 AM EST No available appts next week in [place] with a senior process analyst, please review and schedule * Telephone Encounter - Whitney Mccarthy OSA - 09/27/2023 9:25 AM EST Please call patient to schedule 1 week valentine and needs an appointment over in [place] with Web Mobile Designer documented in this encounter Plan of Treatment Upcoming Encounters Date Type Department Care Team (Late st Contact Info) Description 10/05/2023 1:45 PM EST Office Visit Gynecology/Obstetrics [facility] [address] [place] [address] Rosa Bhakta CNM [address] [facility] [address] 10/05/2023 2:15 PM EST Office Visit Gynecology/Obstetrics [facility] Reyes [address] [place] [address] Yoana Clement CRNP [address] [place] [address] Health Maintenance Due Date Last Done Comments COVID-19 Vaccine (#1) 06/17/2000 Pneumococcal Vaccine: Pediat rics (0 to 5 Years) and At-Risk Patients (6 to 64 Years) (1 - PCV) 12/16/2005 GARDASIL-HPV IMMUNIZATION SE TIFFANY (1 - 2-dose series) 12/16/2010 Depression Screening 2011 Influenza Vaccine (FLU shot) (#1) 2023 Gonorrhea / Chlamydia Screen 05/23/2024 05/23/2023 Pap Smear 05/23/2026 05/23/2023 DTaP,Tdap,and Td Vaccines (8 - Td or Tdap) 09/27/2033 09/27/2023, 12/19/2013, 10/29/2004, Additional history exists Hepatitis B Completed 12/19/2000, 08/1999, 03/03/2000 MENINGOCOCCAL (MENACTRA/MENVEO) Completed 7, 12/19/2013 documented as of this encounter Medical Devices Implanted Type Area Passenger Tire Builder Device Identifier Shelf Expiration Date Model / Serial / Lot Reta 13.5 Iud Implanted:Qt y: 1 on 10/16/2020 by Olayinka Acosta MD at OR [facility] N/A: Uterus DELICIA MARIA EUGENIA : [employer] 04/28/2021 [id number] / / [id number] documented as of this encounter Care Teams Umbrella Supervisor Relationship Specialty Start Date End Date Shawanda Moraes DO [address] [facility] [address] [place], [place] [address] PCP - General Family Medicine 04/12/23 documented as of this encounter
--- OUTSIDE RECORDS SUMMARY | 2023-12-06 10:50 | External Medical Summary | Summary of Care ---
Author Name Unknown Organization [facility] Address [address] [facility] [address] Phone [phone] Care Team Providers Care Rn Ante Partum Name Role Phone Shawanda Moraes Primary Care Provider Reason for Visit * Reason Comments Return Visit Encounter Details Date Type Department Care Team (Late st Contact Info) Description 09/27/2023 9:00 AM EST Office Visit Gynecology/Obstetric s [facility] [address] [place] [address] Yoana Clement CRNP [address] [facility] [place] [address] High-risk in third trimester*; Vapes nicotine containing substance; IUD ; Hepatitis C antibody test positive; Need for prophylactic vaccination with combined hxcqwxmshj-xqpkxsv-gi rtussis (DTP) vaccine Allergies Active Allergy Reactions Criticality Noted Date Comments Nickel 10/13/2020 Skin turns blue, blisters Sulfa Antibiotics 05/19/2023 Other Reaction(s): Hives Sulfamethoxazole-Trimethopri m 05/19/2023 Other Reaction(s): Facial swelling and hives documented as of this encounter (statuses as of 09/27/2023) Medications Medication Sig Dispensed Refills Start Date End Date Status Plus 27-1 MG Oral TabletIndications:IUD Take 1 Tablet by mouth daily. 90 Tablet 3 04/12/2023 Active documented as of this encounter (statuses as of 09/27/2023) Active Problems Problem Noted Date Diagnosed Date [...] as of this encounter (statuses as of 09/27/2023) Resolved Problems Problem Noted Date Diagnosed Date Resolved Date Family history of thalassemia 05/23/2023 05/23/2023 Overview: FOB's mother documented as of this encounter (statuses as of 09/27/2023) Immunizations Name Administration Dates Next Due TDAP [...] money to get more. Never true 07/07/2023 [place] Depression Scale Answer Date Recorded [place] Depression Scale Total 0 05/23/2023 The thought [...] Sign Reading Time Taken Comments Blood Pressure 140/80 09/27/2023 9:04 AM EST Pulse - - Temperature - - Respiratory Rate - - Oxygen Saturation - - Inhaled Oxygen Concentration - - Weight 91.2 kg (201 lb) 09/27/2023 9:04 AM EST Height 160 cm (5' 3") 09/27/2023 9:04 AM EST Body Mass Index 35.61 09/27/2023 9:04 AM EST documented in this encounter Progress Notes * Yoana Clement CRNP - 09/27/2023 9:19 AM EST 30w3d No concerns. May be interested in pilot steam yacht delivery at [facility]. Advised they do not have 24/7 pilot steam yacht coverage. Would recommend she make an appt with a pilot steam yacht to [facility]. Baby is active, thinks she changed positions. BP slightly elevated today. Will return in one week for recheck. Trace proteinuria. TDAP today. SHOAIB [place] * Izzy Vail LPN - 09/27/2023 9:04 AM EST 30w3d Denies any issues documented in this encounter Nursing Notes * Izzy Vail LPN - 09/27/2023 9:41 AM EST Patient here for tdap injection. Patient doing well no complaints. Injection given IM as ordered. Patient tolerated well. Patient to follow up as directed. Patient instructed to call if any complications. Patient verbalized understanding of instructions given and her follow up appt for 2 weeks Injection site: Left Deltoid Medication Source: Dispensed stock medication documented in this encounter Plan of Treatment [...] this encounter Medical Devices Implanted Type Area Retail Support Manager Device Identifier Shelf Expiration Date Model / Serial / Lot Reta 13.5 Iud Implanted:Qt y: 1 on 10/16/2020 by Olayinka Acosta MD at OR [facility] N/A: Uterus DELICIA MARIA EUGENIA : [employer] 04/28/2021 [id number] / / [id number] documented as of this encounter Visit Diagnoses Diagnosis High-risk in third trimester- Primary Vapes nicotine containing substance IUD Other specified complication of , unspecified as to episode of care Hepatitis C antibody test positive Other and unspecified nonspecific immunological findings Need for prophylactic vaccination with combined zdgzvsusyo-sfvjsrg-cieonbcei (DTP) vaccine documented in this encounter Care Teams Rn Ante Partum Relationship Specialty Start Date End Date Shawanda Moraes DO [address] [place] [address] [place] [address] PCP - General Family Medicine 04/12/23 documented as of this encounter
--- OUTSIDE RECORDS SUMMARY | 2023-12-06 10:50 | External Medical Summary | Summary of Care ---
Author Name Unknown Organization [facility] Address [address] [facility] [place] [address] Phone [phone] Care Team Providers Care Pipe Line Maintenance Supervisor Name Role Phone Shawanda Moraes Primary Care Provider Reason for Visit * Reason Comments Return Visit Encounter Details Date Type Department Care Team (Late st Contact Info) Description 10/05/2023 2:15 PM EST Office Visit Gynecology/Obstetric s [facility] [address] [place] [address] Yoana Clement CRNP [address] [place] [address] High-risk in third trimester*; Vapes nicotine containing substance; IUD ; Hepatitis C antibody test positive; Pruritus Allergies Active Allergy Reactions Criticality Noted Date Comments Nickel 10/13/2020 Skin turns blue, blisters Sulfa Antibiotics 05/19/2023 Other Reaction(s): Hives Sulfamethoxazole-Trimethopri m 05/19/2023 Other Reaction(s): Facial swelling and hives documented as of this encounter (statuses as of 10/05/2023) Medications Medication Sig Dispensed Refills Start Date End Date Status Plus 27-1 MG Oral TabletIndications:IUD Take 1 Tablet by mouth daily. 90 Tablet 3 04/12/2023 Active documented as of this encounter (statuses as of 10/05/2023) Active Problems Problem Noted Date Diagnosed Date [...] as of this encounter (statuses as of 10/05/2023) Resolved Problems Problem Noted Date Diagnosed Date Resolved Date Family history of thalassemia 05/23/2023 05/23/2023 Overview: FOB's mother documented as of this encounter (statuses as of 10/05/2023) Immunizations Name Administration Dates Next Due TDAP [...] money to get more. Never true 07/07/2023 [place] Depression Scale Answer Date Recorded [place] Depression Scale Total 0 05/23/2023 The thought [...] Sign Reading Time Taken Comments Blood Pressure 118/74 10/05/2023 2:21 PM EST Pulse - - Temperature - - Respiratory Rate - - Oxygen Saturation - - Inhaled Oxygen Concentration - - Weight 93 kg (205 lb) 10/05/2023 2:21 PM EST Height 160 cm (5' 3") 10/05/2023 2:21 PM EST Body Mass Index 36.31 10/05/2023 2:21 PM EST documented in this encounter Progress Notes * Yoana Clement CRNP - 10/05/2023 2:52 PM EST 31w4d Still with swelling in hands and feet. Wearing support hose at work. Hands and feet are now itchy, thinks it is from the swelling. Will obtain labs for ICP today. No other concerns. Baby is active. No contractions, bleeding, or LOF. SHOAIB [place] * Izzy Vail LPN - 10/05/2023 2:21 PM EST 31w4d Denies any concerns documented in this encounter Plan of Treatment Upcoming Encounters Date Type Department Care Team (Late st Contact Info) Description 10/19/2023 10:30 AM EST Office Visit Gynecology/Obstetrics [facility] [address] [place] [address] Yoana Clement CRNP [address] [place] [address] 11/01/2023 8:30 AM EST Office Visit Gynecology/Obstetrics [facility] [address] [place] [address] Agnes Powell CRNP [address] [place] [address] Scheduled Orders Name Type Priority Associated Diagnoses Orde r Schedule HEPATIC FUNCTION PANEL Lab Routine Pruritus Expected: 10/05/2023 (Approximate), Expires: 10/05/2024 BILE ACIDS, FRACTIONATED AND TOTAL Lab Routine Pruritus Expected: 10/05/2023 (Approximate), Expires: 10/05/2024 CBC Lab Routine Pruritus Expected: 10/05/2023 (Approximate), Expires: 10/05/2024 Health Maintenance Due Date Last Done Comments [...] this encounter Medical Devices Implanted Type Area Pump Tester Device Identifier Shelf Expiration Date Model / Serial / Lot Reta 13.5 Iud Implanted:Qt y: 1 on 10/16/2020 by Olayinka Acosta MD at OR [facility] N/A: Uterus DELICIA MARIA EUGENIA : [employer] 04/28/2021 [id number] / / [id number] documented as of this encounter Visit Diagnoses Diagnosis High-risk in third trimester- Primary Vapes nicotine containing substance IUD Other specified complication of , unspecified as to episode of care Hepatitis C antibody test positive Other and unspecified nonspecific immunological findings Pruritus Unspecified pruritic disorder documented in this encounter Care Teams Pipe Line Maintenance Supervisor Relationship Specialty Start Date End Date Shawanda Moraes DO [address] [facility] [address] [place] [address] PCP - General Family Medicine 04/12/23 documented as of this encounter
--- OUTSIDE RECORDS SUMMARY | 2023-12-06 10:50 | External Medical Summary ---
Author Name Unknown Address Unknown Organization [facility] [address] [place] [address] Laboratory Report Ordering Provider Test Date Status NICOLAS BANEGAS 10/05/2023 15:16:01 Final Observation Date Value Abnormality Reference (Units ) Status WBC, Total 10/05/2023 15:16:01 16.22 Above high normal 4 .00-10.80 (K/uL) Final RBC 10/05/2023 15:16:01 4.25 3.85-5.15 (M/uL) Final Hemoglobin 10/05/2023 15:16:01 13.6 12.0-15.3 (g/dL) Final HCT 10/05/2023 15:16:01 38.5 36.0-45.2 (%) Final MCV 10/05/2023 15:16:01 90.6 81.5-97.5 (fL) Final MCH 10/05/2023 15:16:01 32.0 27.0-34.0 (pg) Final MCHC 10/05/2023 15:16:01 35.3 32.0-36.0 (g/dL) Final RDW 10/05/2023 15:16:01 13.0 11.5-15.5 (%) Final Platelets 10/05/2023 15:16:01 276 140-400 (K /uL) Final MPV 10/05/2023 15:16:01 11.1 6.6-11.1 ( fL) Final Performing Location [facility] [place] [address] - [address] [place] [address]
--- OUTSIDE RECORDS SUMMARY | 2023-12-06 10:50 | External Medical Summary | Summary of Care ---
Author Name Unknown Organization [facility] Address [address] [facility] [place] [address] Phone [phone] Care Team Providers Care Counter Person Name Role Phone Shawanda Moraes Primary Care Provider Reason for Visit * Reason Comments Return Visit Encounter Details Date Type Department Care Team (Late st Contact Info) Description 11/01/2023 8:30 AM EST Office Visit Gynecology/Obstetric s [facility] [address] [place] [address] Agnes Powell CRNP [address] [place] [address] High-risk in third trimester*; Vapes nicotine containing substance; IUD ; Hepatitis C antibody test positive; Malposition of fetus, single or unspecified fetus Allergies Active Allergy Reactions Criticality Noted Date Comments Nickel 10/13/2020 Skin turns blue, blisters Sulfa Antibiotics 05/19/2023 Other Reaction(s): Hives Sulfamethoxazole-Trimethopri m 05/19/2023 Other Reaction(s): Facial swelling and hives documented as of this encounter (statuses as of 11/01/2023) Medications Medication Sig Dispensed Refills Start Date End Date Status Plus 27-1 MG Oral TabletIndications:IUD Take 1 Tablet by mouth daily. 90 Tablet 3 04/12/2023 Active documented as of this encounter (statuses as of 11/01/2023) Active Problems Problem Noted Date Diagnosed Date Hepatitis C antibody test positive 05/24/2023 Overview: Neg viral load 05/24/23 Vapes nicotine containing substance 05/23/2023 High-risk 05/23/2023 IUD 05/23/2023 Overview: IUD removed at 6 wks [place] PTSD (post-traumatic stress disorder) 09/19/2020 Overview: Post abortive (2017) PTSD Estimated Date of Delivery Comme nts Yes 12/03/2023 Based on last me nstrual period of 02/26/2023 documented as of this encounter (statuses as of 11/01/2023) Resolved Problems Problem Noted Date Diagnosed Date Resolved Date Family history of thalassemia 05/23/2023 05/23/2023 Overview: FOB's mother documented as of this encounter (statuses as of 11/01/2023) Immunizations Name Administration Dates Next Due TDAP [...] money to get more. Never true 07/07/2023 [place] Depression Scale Answer Date Recorded [place] Depression Scale Total 0 11/01/2023 The thought [...] Sign Reading Time Taken Comments Blood Pressure 108/74 11/01/2023 8:27 AM EST Pulse - - Temperature - - Respiratory Rate - - Oxygen Saturation - - Inhaled Oxygen Concentration - - Weight 95.7 kg (211 lb) 11/01/2023 8:27 AM EST Height - - Body Mass Index 37.38 10/19/2023 10:30 AM EST documented in this encounter Progress Notes * Agnes Powell CRNP - 11/01/2023 8:38 AM EST 35w3d Good movement, no ctx. +swelling, no new HAs/vision changes. On her feet at work, last day isthe . Staying well hydrated. Uncertain position, ?transverse - will get u/s. Has labor instructions. 1 week return, discussed upcoming GBS swab. SHOAIB [place] * Katharina Canales LPN - 11/01/2023 8:27 AM EST 35w3d Denies vaginal bleeding/rom + movement No new concerns ? Position documented in this encounter Plan of Treatment Upcoming Encounters Date Type Department Care Team (Late st Contact Info) Description 11/01/2023 9:45 AM EST Imaging Radiology [facility] [address] [place] [address] 11/08/2023 8:15 AM EDT Office Visit Gynecology/Obstetrics [facility] [address] [place] [address] Yoana Clement CRNP [address] [place] [address] 11/15/2023 8:15 AM EDT Office Visit Gynecology/Obstetrics [facility] [address] [place], [place] [address] Yoana Clement CRNP [address] [place], [place] [address] 11/22/2023 8:15 AM EDT Office Visit Gynecology/Obstetrics [facility] [address] [place] [address] Yoana Clement CRNP [address] [place] [address] 11/29/2023 8:15 AM EDT Office Visit Gynecology/Obstetrics [facility] [address] [place] [address] Yoana Clement CRNP [address] [place] [address] Scheduled Orders Name Type Priority Associated Diagnoses Orde r Schedule US PREG LIMITED 1 OR MORE FETUSES Medical Imaging Routine Malposition of fetus, single or unspecified fetus Expected: 11/01/2023 (Approximate), Expires: 12/01/2024 Health Maintenance Due Date Last Done Comments [...] this encounter Medical Devices Implanted Type Area Screen Examiner Device Identifier Shelf Expiration Date Model / Serial / Lot Reta 13.5 Iud Implanted:Qt y: 1 on 10/16/2020 by Olayinka Acosta MD at OR [facility] N/A: Uterus DELICIA MARIA EUGENIA : [employer] 04/28/2021 [id number] / / [id number] documented as of this encounter Visit Diagnoses Diagnosis High-risk in third trimester- Primary Vapes nicotine containing substance IUD Other specified complication of , unspecified as to episode of care Hepatitis C antibody test positive Other and unspecified nonspecific immunological findings Malposition of fetus, single or unspecified fetus documented in this encounter Care Teams Counter Person Relationship Specialty Start Date End Date Shawanda Moraes DO [address] [facility] [address] [place] [place] [address], [place] [address] PCP - General Family Medicine 04/12/23 documented as of this encounter
--- OUTSIDE RECORDS SUMMARY | 2023-12-06 10:50 | External Medical Summary | Summary of Care ---
Author Name Unknown Organization [facility] Address [address] [facility] [address] Phone [phone] Care Team Providers Care Line Person Name Role Phone Shawanda Moraes Primary Care Provider Reason for Visit * Reason Comments Outpatient Testing Encounter Details Date Type Department Care Team (Late st Contact Info) Description 10/05/2023 3:20 PM EST Laboratory Laboratory, [facility] [address] [place] [id number] [facility] [address] [place] [address] Pruritus Allergies Active Allergy Reactions Criticality Noted [...] money to buy more. Never true 07/07/20 Within the past 12 months, t he food you bought just didn't last and you didn't have money to get more. Never true 07/07/2023 [place] Depression Scale Answer Date Recorded [place] Depression Scale Total 0 05/23/2023 The thought [...] on file documented as of this encounter Plan of Treatment Upcoming Encounters Date Type Department Care Team (Late Contact Info) Description 10/19/2023 10:30 AM EST Office Visit Gynecology/Obstetrics [facility] [address] [place] [address] Yoana Clement CRNP [address] [place] [address] 11/01/2023 8:30 AM EST Office Visit Gynecology/Obstetrics [facility] [address] [place] [address] ManfrederAgnes CRNP [address] [place] [address] Pending Results Name Type Priority Associated Diagnoses Date /Time HEPATIC FUNCTION PANEL Lab Routine Pruritus 10/05/2023 3:16 PM EST BILE ACIDS, FRACTIONATED AND TOTAL Lab Routine Pruritus 10/05/2023 3:16 PM EST CBC Lab Routine Pruritus 10/05/2023 3:16 PM EST Health Maintenance Due Date Last Done Comments [...] this encounter Medical Devices Implanted Type Area Swimming Pool Plasterer Helper Device Identifier Shelf Expiration Date Model / Serial / Lot Reta 13.5 Iud Implanted:Qt y: 1 on 10/16/2020 by Olayinka Acosta MD at OR [facility] N/A: Uterus DELICIA MARIA EUGENIA : [employer] 04/28/2021 [id number] / / [id number] documented as of this encounter Visit Diagnoses Diagnosis Pruritus Unspecified pruritic disorder documented in this encounter Care Teams Line Person Relationship Specialty Start Date End Date Shawanda Moraes DO 6 [facility] [address], [place] [address] PCP - General Family Medicine 04/12/23 documented as of this encounter
--- OUTSIDE RECORDS SUMMARY | 2023-12-06 10:50 | External Medical Summary | Continuity of Care Document ---
Author Name Unknown Organization [facility] [address] [place] 1 Address [address] [place], [place] [id number] Care Team Providers Care Annealer Helper Name Role Phone Shawanda Moraes Primary Care Physician [phone] Encounter [facility] [id number] Date(s): 09/21/23 - 09/21/23 [facility] [address] [facility] 1 [facility] [address] [place] [facility] 1 [place], [phone] Encounter Diagnosis Edema, unspecified(Final) - Discharge Disposition: Home or Self Care Attending Physician: DO Moraes Kristen M Referring Physician: DO Moraes Kristen M Allergies, Adverse Reactions, Alerts Substance Reaction Severity Status sulfa drugs Hives Active Bactrim DS Facial swelling and hives Ac tive Immunizations Given and Recorded Vaccine Date Status Refusal Reason meningococcal conjugate vaccine 04/22/17 Given meningococcal conjugate vaccine 12/19/13 Given tetanus/diphtheria/pertuss, acel (Tdap) 12/19/13 G iven varicella virus vaccine 05/23/07 Recorded varicella virus vaccine 03/21/01 Recorded measles/mumps/rubella virus vaccine 10/29/04 Recor ded measles/mumps/rubella virus vaccine 12/19/00 Recor ded poliovirus vaccine, inactivated 10/29/04 Recorded poliovirus vaccine, inactivated 03/21/01 Recorded poliovirus vaccine, inactivated 05/11/00 Recorded poliovirus vaccine, inactivated 03/03/00 Recorded diphtheria/tetanus/pertuss, acel (DTaP) 10/29/04 R ecorded diphtheria/tetanus/pertuss, acel (DTaP) 03/21/01 R ecorded diphtheria/tetanus/pertuss, acel (DTaP) 07/15/00 R ecorded diphtheria/tetanus/pertuss, acel (DTaP) 05/11/00 R ecorded diphtheria/tetanus/pertuss, acel (DTaP) 03/03/00 R ecorded hepatitis B pediatric vaccine 12/19/00 Recorded hepatitis B pediatric vaccine 04/29/00 Recorded hepatitis B pediatric vaccine 1 04/29/00 Recorded hepatitis B pediatric vaccine 03/03/00 Recorded 1Result Comment: 2022-01-08: Historical information-source unspecified Medications Keflex 500 mg oral capsule Start: 04/29/23 10:13:00 EDT, 1 cap, PO, tid, Disp# 21 cap, Refills: 0, [id number] Start Date: 04/29/23 Stop Date: 05/06/23 Status: Ordered Reta 13.5 mg intrauterine device Start: 09/01/20 17:26:00 EST, 1 each, intrauterine, ONCE, Disp# 1 each, other Start Date: 09/01/20 Status: Ordered triamcinolone 0.1% topical cream Start: 07/02/21 11:12:00 EDT, 1 appl, topical, bid, Disp# 30 g, Refills: 3, [id number] Start Date: 07/02/21 Status: Ordered Problem List Condition Confirmation Course Effective Dates Status Health St atus Informant Mastitis, left, acute Confirmed Active Amenorrhea Confirmed Active Edema Confirmed Active Ingrown toenail Confirmed Active Molluscum Contagiosum Confirmed Active Visit for preventive health examination Confirmed Active Procedures Procedure Date Related Diagnosis Body Site Status Ultrasound of left breast 1 01/27/22 Completed tonsillectomy Completed 1ultra sound of left breast impression no targeted sonographic evidence of malignancy in the vilma breast. No drainable fluid collections or focally dilated duct currently identified. Would recommend restarting antibiotics and extending the course for approximately 14 days to ensure comlete resolution of the patients symptoms. If symptoms ater antibiotic completion this time surgical consultation may be needed. Results Laboratory List Name Date Complete Blood Count w Differential (CBC ,DIFFH) 09/21/23 Comprehensive Metabolic Panel (COMP META B PANEL) 09/21/23 Urine Analysis w/ Reflexed Microscopic. (URINE W/REFLEX MICR) 09/21/23 Most recent to oldest [Reference Range]: 1 eGFR CKD-EPI [>60 mL/min/1.73 m2] >90 mL /min/1.73 m2 1 (09/21/23 10:24 AM) Estimated CrCl 111.10 mL/min (09/21/23 11:07 AM) MPV [9.0-12.2 fL] 10.7 fL (09/21/23 10:24 AM) Immature Gran% 1.3 % (09/21/23 10:24 AM) Neut% 80.8 % (09/21/23 10:24 AM) Lymph% 11.6 % (09/21/23 10:24 AM) [place]% 5.3 % (09/21/23 10:24 AM) Baso% 0.3 % (09/21/23 10:24 AM) Eos% 0.7 % (09/21/23 10:24 AM) Immat Gran, Abs [0-0.4 K/uL] 0.18 K/uL 2 (09/21/23 10:24 AM) Neut, Abs [2.0-7.7 K/uL] 11.46 K/uL *HI* (09/21/23 10:24 AM) Lymph, Abs [1.0-3.4 K/uL] 1.65 K/uL (09/21/23 10:24 AM) [place], Abs [0-1.0 K/uL] 0.75 K/uL (09/21/23 10:24 AM) Baso, Abs [0-0.1 K/uL] 0.04 K/uL (09/21/23 10:24 AM) Eos, Abs [0-0.5 K/uL] 0.10 K/uL (09/21/23 10:24 AM) Type of Diff: AUTO *Unknown* (09/21/23 10:24 AM) RDW [11.5-14.2 %] 13.3 % (09/21/23 10:24 AM) Anion Gap [5-14 mmol/L] 9 mmol/L (09/21/23 10:24 AM) Alb [3.5-5.0 g/dL] 3.7 g/dL (09/21/23 10:24 AM) Alk Phos [38-126 unit/L] 99 unit/L (09/21/23 10:24 AM) ALT [<35 unit/L] 22 unit/L (09/21/23 10:24 AM) AST [15-46 unit/L] 23 unit/L (09/21/23 10:24 AM) Bili (u) [NEG] NEGATIVE *Unknown* (09/21/23 10:24 AM) BUN [7-20 mg/dL] 5 mg/dL *LOW* (09/21/23 10:24 AM) Ca [8.4-10.2 mg/dL] 9.3 mg/dL (09/21/23 10:24 AM) Cl- [96-107 mmol/L] 110 mmol/L *HI* (09/21/23 10:24 AM) HCO3 [22-30 mmol/L] 20 mmol/L *LOW* (09/21/23 10:24 AM) Cret [0.60-1.00 mg/dL] 0.46 mg/dL *LOW* (09/21/23 10:24 AM) Glu [74-106 mg/dL] 124 mg/dL *HI* (09/21/23 10:24 AM) Hct [35-44 %] 39.7 % (09/21/23 10:24 AM) Hgb [11.7-15.0 g/dL] 13.7 g/dL (09/21/23 10:24 AM) K [3.5-5.1 mmol/L] 3.5 mmol/L (09/21/23 10:24 AM) Ketones [NEG mg/dL] NEGATIVE mg/dL (09/21/23 10:24 AM) Leuk Est [NEG] NEGATIVE 3 *Unknown* (09/21/23 10:24 AM) MCH [28-33 pg] 31.2 pg (09/21/23 10:24 AM) MCHC [32-36 g/dL] 34.5 g/dL (09/21/23 10:24 AM) MCV [81-96 fL] 90.4 fL (09/21/23 10:24 AM) Na [137-145 mmol/L] 139 mmol/L (09/21/23 10:24 AM) Nitrite (u) [NEG] NEGATIVE *Unknown* (09/21/23 10:24 AM) Plts [150-350 K/uL] 266 K/uL (09/21/23 10:24 AM) RBC [3.90-5.00 M/uL] 4.39 M/uL (09/21/23 10:24 AM) T Bili [0.2-1.3 mg/dL] 0.5 mg/dL (09/21/23 10:24 AM) Prot [6.3-8.2 g/dL] 6.9 g/dL (09/21/23 10:24 AM) Appear (u) SLIGHTLY CLOUDY *Unknown* (09/21/23 10:24 AM) Color (u) YELLOW *Unknown* (09/21/23 10:24 AM) Glu (u) [NEG mg/dL] NEGATIVE mg/dL (09/21/23 10:24 AM) Hgb (u) [NEG] NEGATIVE *Unknown* (09/21/23 10:24 AM) pH (u) [4.5-8.0 unit] 7.0 unit (09/21/23 10:24 AM) Prot (u) [NEG mg/dL] NEGATIVE mg/dL (09/21/23 10:24 AM) Urobili [0.1-1.0 EU/dL] 0.2 EU/dL (09/21/23 10:24 AM) SG [1.005-1.030] 1.015 (09/21/23 10:24 AM) WBC [4.0-10.4 K/uL] 14.18 K/uL *HI* (09/21/23 10:24 AM) 1Result Comment: Testing Performed By: Dept of Pathology [facility] Esa Mclain, [address] [place] [address], [place] [address] 2Result Comment: Testing Performed By: Dept of Pathology [facility] Esa Mclain, [address] [place] [address] 3Result Comment: Testing Performed By: Dept of Pathology [facility] Esa Mclain, [address] [place] [address] Social History Social History Type Response Smoking Status Never smoked cigaret pricilla Sex Female Patient Care team information Care Team Personnel Name: DO Moraes Kristen M Position: Physician - Family Med Member Role: Primary Care Provider Address: Address: [address] [place] [address], [place] [address] [place] Care Team Related Persons Name: THAD PORTILLO Address: home [address] [place] [address] [place] [address] [place] [phone] Name: INOCENTE PORTILLO Address: [place] Address: home [address] [facility] [place] [id number] Name: INOCENTE PORTILLO Address: home [address] [facility] [address] [place] [id number]
--- OUTSIDE RECORDS SUMMARY | 2023-12-06 10:50 | External Medical Summary ---
Author Name Unknown Address Unknown Organization [facility] [place] [address] [place] [address] Laboratory Report Ordering Provider Test Date Status NICOLAS BANEGAS 10/05/2023 15:16:01 Final Observation Date Value Abnormality Reference (Units ) Status Albumin 10/05/2023 15:16:01 3.8 3.8-5.0 (g/dL) Final AST (Aspartate aminotransferase) 10/05/2023 15:16:01 15 10-35 (U/L) Final Alk Phos 10/05/2023 15:16:01 131 Above high normal 35-130 (U/L) Final ALT (Alanine aminotransferase) 10/05/2023 15:16:01 15 10-35 (U/L) Final Bilirubin, Total 10/05/2023 15:16:01 <0.2 <=1.2 (mg/dL) Final Bilirubin, Direct 10/05/2023 15:16:01 <0.2 0.0-0.3 (mg/dL) Final Protein 10/05/2023 15:16:01 6.3 6.0-8.3 (g/dL) Final Performing Location [facility] [address] [place] [address]
--- OUTSIDE RECORDS SUMMARY | 2023-12-06 10:51 | External Medical Summary ---
Author Name Unknown Address Unknown Organization [facility] [address] [place] [address] Laboratory Report Ordering Provider Test Date Status HASEEB RODRIGUEZ 06/20/2023 12:05:55 Final Observation Date Value Abnormality Reference (Units ) Status Nucleated erythrocytes/100 leukocytes [Ratio] in Blood by Automated count 06/20/2023 12:05:55 Final Variant lymphocytes [Presence] in Blood by Light microscopy 06/20/2023 12:05:55 Present Abnormal None Seen Final Performing Location [facility] [address] [place] [address]
--- OUTSIDE RECORDS SUMMARY | 2023-12-06 10:51 | External Medical Summary | Summary of Care ---
Author Name Unknown Organization [facility] Address [address] [facility] [place] [address] Phone [phone] Care Team Providers Care Laundry Aid Name Role Phone Shawanda Moraes Primary Care Provider Reason for Visit * Reason Comments Return Visit Encounter Details Date Type Department Care Team (Late st Contact Info) Description 08/16/2023 8:15 AM EST Office Visit Gynecology/Obstetric s [facility] [address] [place] [address] Yoana Clement CRNP [address] [place] [address] High-risk in second trimester*; Vapes nicotine containing substance; IUD ; Hepatitis C antibody test positive Allergies Active Allergy Reactions Criticality Noted Date Comments Nickel 10/13/2020 Skin turns blue, blisters Sulfa Antibiotics 05/19/2023 Other Reaction(s): Hives Sulfamethoxazole-Trimethopri m 05/19/2023 Other Reaction(s): Facial swelling and hives documented as of this encounter (statuses as of 08/16/2023) Medications Medication Sig Dispensed Refills Start Date End Date Status Plus 27-1 MG Oral TabletIndications:IUD Take 1 Tablet by mouth daily. 90 Tablet 3 04/12/2023 Active documented as of this encounter (statuses as of 08/16/2023) Active Problems Problem Noted Date Diagnosed Date [...] as of this encounter (statuses as of 08/16/2023) Resolved Problems Problem Noted Date Diagnosed Date Resolved Date Family history of thalassemia 05/23/2023 05/23/2023 Overview: FOB's mother documented as of this encounter (statuses as of 08/16/2023) Social History Tobacco Use Types Packs/Day Years [...] money to get more. Never true 07/07/2023 [place] Depression Scale Answer Date Recorded [place] Depression Scale Total 0 05/23/2023 The thought [...] Sign Reading Time Taken Comments Blood Pressure 108/64 08/16/2023 8:18 AM EST Pulse - - Temperature - - Respiratory Rate - - Oxygen Saturation - - Inhaled Oxygen Concentration - - Weight 86.2 kg (190 lb) 08/16/2023 8:18 AM EST Height 160 cm (5' 3") 08/16/2023 8:18 AM EST Body Mass Index 33.66 08/16/2023 8:18 AM EST documented in this encounter Progress Notes * Yoana Clement CRNP - 08/16/2023 8:39 AM EST 24w3d Having numbness and swelling in hands, swelling in feet. Works at a [employer], stands all day. No other concerns. Feeling FM. No bleeding or LOF. Glucola with next visit. SHOAIB [place] * Izzy Vail LPN - 08/16/2023 8:19 AM EST 24w3d Denies any issues documented in this encounter Plan of Treatment Upcoming Encounters Date Type Department Care Team (Late st Contact Info) Description 09/13/2023 8:40 AM EST [facility] [address] [place] [phone] [facility] [address] [place] [address] 09/13/2023 9:15 AM EST Office Visit Gynecology/Obstetrics [facility] [address] [place] [address] Yoana Clement CRNP [address] [place] [address] Scheduled Orders Name Type Priority Associated Diagnoses Orde r Schedule 50-G GESTATIONAL GLUCOSE, 1 HOUR Lab Routine High-risk in second trimester Expected: 08/30/2023 (Approximate), Expires: 08/16/2024 CBC WITH WBC DIFFERENTIAL AND ANEMIA REFLEX WORKUP Lab Routine High-risk in second trimester Expected: 08/30/2023 (Approximate), Expires: 08/16/2024 SYPHILIS ANTIBODY SCREEN WITH REFLEX TO RPR Lab Routine High-risk in second trimester Expected: 08/30/2023 (Approximate), Expires: 08/16/2024 Health Maintenance Due Date Last Done Comments COVID-19 Vaccine (#1) 06/17/2000 Pneumococcal Vaccine: Pediat rics (0 to 5 Years) and At-Risk Patients (6 to 64 Years) (1 - PCV) 12/16/2005 GARDASIL-HPV IMMUNIZATION SE TIFFANY (1 - 2-dose series) 12/16/2010 Depression Screening 2011 Influenza Vaccine (FLU shot) (#1) 2023 DTaP,Tdap,and Td Vaccines (7 - Td or Tdap) 12/20/2023 12/19/2013, 10/29/2004, 03/21/2001, Additional history exists Gonorrhea / Chlamydia Screen 05/23/2024 05/23/2023 Pap Smear 05/23/2026 05/23/2023 Hepatitis B Completed 12/19/2000, 08/1999, 03/03/2000 MENINGOCOCCAL (MENACTRA/MENVEO) Completed 7, 12/19/2013 documented as of this encounter Medical Devices Implanted Type Area Franchise Manager Device Identifier Shelf Expiration Date Model / Serial / Lot Reta 13.5 Iud Implanted:Qt y: 1 on 10/16/2020 by Olayinka Acosta MD at OR [facility] N/A: Uterus DELICIA MARIA EUGENIA : [employer] 04/28/2021 [id number] / / [id number] documented as of this encounter Visit Diagnoses Diagnosis High-risk in second trimester- Primary Vapes nicotine containing substance IUD Other specified complication of , unspecified as to episode of care Hepatitis C antibody test positive Other and unspecified nonspecific immunological findings documented in this encounter Care Teams Laundry Aid Relationship Specialty Start Date End Date Shawanda Moraes DO 6 [facility] [address], [place] [address] PCP - General Family Medicine 04/12/23 documented as of this encounter
--- OUTSIDE RECORDS SUMMARY | 2023-12-06 10:51 | External Medical Summary ---
Author Name Unknown Address Unknown Organization [id number]:LABORATORY [facility] [address] [place] [address] Laboratory Report Ordering Provider Test Date Status NICOLAS BANEGAS 09/15/2023 10:34:00 Final Observation Date Value Abnormality Reference (Units ) Status Glucose [Mass/volume] in Serum or Plasma --3 hours post dose glucose 09/15/2023 10:34:00 83 70-139 (mg/dL) Final Performing Location LAB[facility]ATORY [facility] [address] 0 - [address] [place] [address]
--- OUTSIDE RECORDS SUMMARY | 2023-12-06 10:51 | External Medical Summary ---
Author Name Unknown Address Unknown Organization [id number]:LABORATORY [facility] [address] [place] [address] Laboratory Report Ordering Provider Test Date Status NICOLAS BANEGAS 09/15/2023 08:33:58 Final Observation Date Value Abnormality Reference (Units ) Status Glucose [Mass/volume] in Serum or Plasma --1 hour post dose glucose 09/15/2023 08:33:58 151 70-179 (mg/dL) Final Performing Location LABORATORY [facility] [address] [place] [address]
--- OUTSIDE RECORDS SUMMARY | 2023-12-06 10:51 | External Medical Summary | Summary of Care ---
Author Name Unknown Organization [facility] Address [address] [facility] [place] [address] Phone [phone] Care Team Providers Care Insurance Loss Adjuster Name Role Phone Shawanda Moraes Primary Care Provider Reason for Visit * Reason Comments Return Visit Encounter Details Date Type Department Care Team (Late st Contact Info) Description 06/20/2023 11:45 AM EDT Office Visit Gynecology/Obstetric s [facility] [address] [place] [address] Chata Goldberg PA-C [address] [place] [address] High-risk in second trimester*; Vapes nicotine containing substance; IUD ; Hepatitis C antibody test positive; Elevated hemoglobin (HCC) Allergies Active Allergy Reactions Criticality Noted Date Comments Nickel 10/13/2020 Skin turns blue, blisters Sulfa Antibiotics 05/19/2023 Other Reaction(s): Hives Sulfamethoxazole-Trimethopri m 05/19/2023 Other Reaction(s): Facial swelling and hives documented as of this encounter (statuses as of 06/20/2023) Medications Medication Sig Dispensed Refills Start Date End Date Status Plus 27-1 MG Oral TabletIndications:IUD Take 1 Tablet by mouth daily. 90 Tablet 3 04/12/2023 Active documented as of this encounter (statuses as of 06/20/2023) Active Problems Problem Noted Date Diagnosed Date [...] as of this encounter (statuses as of 06/20/2023) Resolved Problems Problem Noted Date Diagnosed Date Resolved Date Family history of thalassemia 05/23/2023 05/23/2023 Overview: FOB's mother documented as of this encounter (statuses as of 06/20/2023) Social History Tobacco Use Types Packs/Day Years Used Date Smoking Tobacco: Every Day Vaporizer Smokeless Tobacco: Never Alcohol Use Standard Drinks/Week Comments Yes 0 (1 standard drink = 0.6 oz pur e alcohol) Hunger Vital Sign Answer Date Recorded Within the past 12 months, y ou worried that your food would run out before you got the money to buy more. Never true 05/23/20 Within the past 12 months, t he food you bought just didn't last and you didn't have money to get more. Never true 05/23/2023 [place] Depression Scale Answer Date Recorded [place] Depression Scale Total 0 05/23/2023 The thought [...] Sign Reading Time Taken Comments Blood Pressure 118/70 06/20/2023 11:42 AM EDT Pulse - - Temperature - - Respiratory Rate - - Oxygen Saturation - - Inhaled Oxygen Concentration - - Weight 75.5 kg (166 lb 6.4 oz) 06/20/2023 11:42 AM EDT Height 160 cm (5' 3") 06/20/2023 11:42 AM EDT Body Mass Index 29.48 06/20/2023 11:42 AM EDT documented in this encounter Progress Notes * Chata Goldberg PA-C - 06/20/2023 12:02 PM EDT 16w2d Doing well, without complaints. Denies bleeding, leaking, contractions. No quickening. Repeat CBC ordered -- elevated H/H with NOB labs. Anatomy ordered with next visit. Declines all genetic testing. RTC in 4 weeks. Chata Goldberg PA-C documented in this encounter Nursing Notes * Pauline Davalos RN - 06/20/2023 11:43 AM EDT Patient here for JACQUELIN 16w2d No concerns Pended repeat CBC and anatomy order documented in this encounter Plan of Treatment Upcoming Encounters Date Type Department Care Team (Late st Contact Info) Description 07/19/2023 9:45 AM EST Imaging Radiology [facility] [address] [place] [phone] 07/19/2023 11:30 AM EST Office Visit Gynecology/Obstetrics [facility] [address] [place] [address] Agnes Powell CRNP [address] [place] [address] Pending Results Name Type Priority Associated Diagnoses Date /Time CBC WITH WBC DIFFERENTIAL Lab Routine High-risk in second trimester Elevated hemoglobin (HCC) 06/20/2023 12:05 PM EDT CBC Lab Routine High-risk in second trimester Elevated hemoglobin (HCC) 06/20/2023 12:05 PM EDT DIFFERENTIAL, AUTOMATED Lab Routine High-risk in second trimester Elevated hemoglobin (HCC) 06/20/2023 12:05 PM EDT Scheduled Orders Name Type Priority Associated Diagnoses Orde r Schedule US PREG SINGLE/1ST GEST, 14 WEEKS OR LATER Medical Imaging Routine High-risk in second trimester Expected: 07/21/2023, Expires: 07/21/2024 Health Maintenance Due Date Last Done Comments Hepatitis B (1 of 3 - 3-dose series) 1999 COVID-19 Vaccine (#1) 06/17/2000 Pneumococcal Vaccine: Pediatrics (0 to 5 Years) and At-Risk Patients (6 to 64 Years) (1 - PCV) 12/16/2005 GARDASIL-HPV IMMUNIZATION SERIES (1 - 2-dose series) 12/16/2010 Depression Screening 2011 Influenza Vaccine (FLU shot) (#1) 2023 DTaP,Tdap,and Td Vaccines (7 - Td or Tdap) 12/20/2023 12/19/2013, 10/29/2004, 03/21/2001, Additional history exists Gonorrhea / Chlamydia Screen 05/23/2024 05/23/2023 Pap Smear 05/23/2026 05/23/2023 MENINGOCOCCAL (MENACTRA/MENVEO) Aged Out No longer eligible based on patient's age to complete this topic documented as of this encounter Medical Devices Implanted Type Area Brim Buster Device Identifier Shelf Expiration Date Model / Serial / Lot Reta 13.5 Iud Implanted:Qt y: 1 on 10/16/2020 by Olayinka Acosta MD at OR [facility] N/A: Uterus DELICIA MARIA EUGENIA : [employer] 04/28/2021 [id number] / / [id number] documented as of this encounter Visit Diagnoses Diagnosis High-risk in second trimester- Primary Vapes nicotine containing substance IUD Other specified complication of , unspecified as to episode of care Hepatitis C antibody test positive Other and unspecified nonspecific immunological findings Elevated hemoglobin (HCC) Other hemoglobinopathies documented in this encounter Care Teams Insurance Loss Adjuster Relationship Specialty Start Date End Date Shawanda Moraes DO 6 [facility] [address], [place] [address] PCP - General Family Medicine 04/12/23 documented as of this encounter
--- OUTSIDE RECORDS SUMMARY | 2023-12-06 10:51 | External Medical Summary | Summary of Care ---
Author Name Unknown Organization [facility] Address [address] [facility] [place] [address] Phone [phone] Care Team Providers Care Field Reviewer Name Role Phone Shawanda Moraes Primary Care Provider Reason for Visit * Reason Comments Outpatient Testing Encounter Details Date Type Department Care Team (Late st Contact Info) Description 09/15/2023 7:20 AM EST Laboratory Laboratory, [facility] [address] [place] [phone] [facility] [address] [place] [address] Abnormal glucose tolerance in mother complicating Allergies Active Allergy Reactions Criticality Noted Date Comments Nickel 10/13/2020 Skin turns blue, blisters Sulfa Antibiotics 05/19/2023 Other Reaction(s): Hives Sulfamethoxazole-Trimethopri m 05/19/2023 Other Reaction(s): Facial swelling and hives documented as of this encounter (statuses as of 09/15/2023) Medications Medication Sig Dispensed Refills Start Date End Date Status Plus 27-1 MG Oral TabletIndications:IUD Take 1 Tablet by mouth daily. 90 Tablet 3 04/12/2023 Active documented as of this encounter (statuses as of 09/15/2023) Active Problems Problem Noted Date Diagnosed Date [...] as of this encounter (statuses as of 09/15/2023) Resolved Problems Problem Noted Date Diagnosed Date Resolved Date Family history of thalassemia 05/23/2023 05/23/2023 Overview: FOB's mother documented as of this encounter (statuses as of 09/15/2023) Social History Tobacco Use Types Packs/Day Years [...] money to get more. Never true 07/07/2023 [place] Depression Scale Answer Date Recorded [place] Depression Scale Total 0 05/23/2023 The thought [...] Description 09/27/2023 9:00 AM EST Office Visit Gynecology/Obstetrics [facility] [address] [place] [address] Yoana Clement CRNP [address] [place] [address] Pending Results Name Type Priority Associated Diagnoses Date /Time GESTATIONAL GLUCOSE TOLERANCE, 3 HOUR Lab Routine Abnormal glucose tolerance in mother complicating 09/15/2023 7:33 AM EST 100-G GESTATIONAL GLUCOSE, 3 HOUR Lab Routine Abnormal glucose tolerance in mother complicating 09/15/2023 10:34 AM EST Health Maintenance Due Date Last Done [...] this encounter Medical Devices Implanted Type Area Tire Fixer Device Identifier Shelf Expiration Date Model / Serial / Lot Reta 13.5 Iud Implanted:Qt y: 1 on 10/16/2020 by Olayinka Acosta MD at OR [facility] N/A: Uterus DELICIA MARIA EUGENIA : [employer] 04/28/2021 [id number] / / [id number] documented as of this encounter Procedures Procedure Name Priority Date/Time Associated Diagnosis Comments 100-G GESTATIONAL GLUCOSE, 2 HOUR Routine 09/15/2023 9:39 AM EST Abnormal glucose tolerance in mother complicating 100-G GESTATIONAL GLUCOSE, 1 HOUR Routine 09/15/2023 8:33 AM EST Abnormal glucose tolerance in mother complicating 100-G GESTATIONAL GLUCOSE, FASTING Routine 09/15/2023 7:33 AM EST Abnormal glucose tolerance in mother complicating documented in this encounter Results * 100-G GESTATIONAL GLUCOSE, 2 HOUR (09/15/2023 9:39 AM EST) 100-g Gestational Glucose, 2 Hour 104 70 - 154 mg/dL 09/15/2023 10:36 AM EST [facility] Blood Venous blood specimen / Unknown Venipuncture / Unknown 09/15/2023 9:39 AM EST 09/15/2023 9:39 AM EST Yoana CRAMER LAB BLOOD ORDERABLES Performing Organization Address City/[facility]/ZIP Co de Phone Number [facility] [address] [facility] [place] [address] * 100-G GESTATIONAL GLUCOSE, 1 HOUR (09/15/2023 8:33 AM EST) 100-g Gestational Glucose, 1 Hour 151 70 - 179 mg/dL 09/15/2023 9:26 AM EST [facility] [place] [address] Blood Venous blood specimen / Unknown Venipuncture / Unknown 09/15/2023 8:33 AM EST 09/15/2023 8:33 AM EST Yoana CRAMER LAB BLOOD ORDERABLES [facility] [place] [address] [place] [address] * 100-G GESTATIONAL GLUCOSE, FASTING (09/15/2023 7:33 AM EST) 100-g Gestational Glucose, Fasting 90 70 - 94 mg/dL 09/15/2023 8:27 AM EST [facility] [place] [address] Blood Venous blood specimen / Unknown Venipuncture / Unknown 09/15/2023 7:33 AM EST 09/15/2023 7:33 AM EST Narrative [facility] [address] - 09/15/2023 8:27 AM EST Based on ACOG guideline, gestational diabetes mellitus is diagnosed when any of the following is met: Fasting is greater than or equal to 95 mg/dL 1 hour is greater than or equal to 180 mg/dL 2 hour is greater than or equal to 155 mg/dL 3 hour is greater than or equal to 140 mg/dL Yoana CRAMER LAB BLOOD ORDERABLES [facility] [address] [facility] [place] [address] documented in this encounter Visit Diagnoses Diagnosis Abnormal glucose tolerance in mother complicating Abnormal maternal glucose tolerance, complicating , childbirth, or the puerperium, unspecified as to episode of care documented in this encounter Care Teams Field Reviewer Relationship Specialty Start Date End Date Shawanda Moraes DO 6 Tiara Rashid [address] [place] [address], [place] [address] PCP - General Family Medicine 04/12/23 documented as of this encounter
--- OUTSIDE RECORDS SUMMARY | 2023-12-06 10:51 | External Medical Summary ---
Author Name Unknown Address Unknown Organization [id number]:LABORATORY C - [address] [facility] [address] [place] [address] Laboratory Report Ordering Provider Test Date Status CLEO BANEGASAIL 09/13/2023 09:40:27 Final Observation Date Value Abnormality Reference (Units ) Status WBC, Total 09/13/2023 09:40:27 13.48 Above high normal 4 .00-10.80 (K/uL) Final RBC 09/13/2023 09:40:27 4.24 3.85-5.15 (M/uL) Final Hemoglobin 09/13/2023 09:40:27 13.4 12.0-15.3 (g/dL) Final Anemia reflex testing trigge rs on a HGB < 12.0 for Females and HGB < 13.0 for Males in accordance with the WHO Anemia Guidelines
Anemia reflex testing triggers on a HGB < 12.0 for Females and HGB < 13.0 for Males in accordance with the WHO Anemia Guidelines HCT 09/13/2023 09:40:27 40.7 36.0-45.2 (%) Final MCV 09/13/2023 09:40:27 96.0 81.5-97.5 (fL) Final MCH 09/13/2023 09:40:27 31.6 27.0-34.0 (pg) Final MCHC 09/13/2023 09:40:27 32.9 32.0-36.0 (g/dL) Final RDW 09/13/2023 09:40:27 13.5 11.5-15.5 (%) Final Platelets 09/13/2023 09:40:27 241 140-400 (K /uL) Final MPV 09/13/2023 09:40:27 11.4 6.6-11.1 ( fL) Final Nucleated erythrocytes/100 leukocytes [Ratio] in Blood by Automated count 09/13/2023 09:40:27 0 <=0 (/100 WBCs) [facility] Performing Location LAB[facility] - [address] [facility] [address]
--- OUTSIDE RECORDS SUMMARY | 2023-12-06 10:51 | External Medical Summary | Summary of Care ---
Author Name Unknown Organization [facility] Address [address] [facility] [address] Phone [phone] Care Team Providers Care [employer] Band Director Name Role Phone Shawanda Moraes Primary Care Provider Reason for Visit * Reason Comments Outpatient Testing Encounter Details Date Type Department Care Team (Late st Contact Info) Description 09/13/2023 8:40 AM EST Laboratory Laboratory, [facility] 132 [facility] [place] [phone] [facility] [address] [place], [place] [id number] High-risk in second trimester Allergies Active Allergy Reactions Criticality Noted Date Comments Nickel 10/13/2020 Skin turns blue, blisters Sulfa Antibiotics 05/19/2023 Other Reaction(s): Hives Sulfamethoxazole-Trimethopri m 05/19/2023 Other Reaction(s): Facial swelling and hives documented as of this encounter (statuses as of 09/13/2023) Medications Medication Sig Dispensed Refills Start Date End Date Status Plus 27-1 MG Oral TabletIndications:IUD Take 1 Tablet by mouth daily. 90 Tablet 3 04/12/2023 Active documented as of this encounter (statuses as of 09/13/2023) Active Problems Problem Noted Date Diagnosed Date [...] as of this encounter (statuses as of 09/13/2023) Resolved Problems Problem Noted Date Diagnosed Date Resolved Date Family history of thalassemia 05/23/2023 05/23/2023 Overview: FOB's mother documented as of this encounter (statuses as of 09/13/2023) Social History Tobacco Use Types Packs/Day Years [...] money to get more. Never true 07/07/2023 [place] Depression Scale Answer Date Recorded [place] Depression Scale Total 0 05/23/2023 The thought [...] 09/27/2023 9:00 AM EST Office Visit Gynecology/Ob[facility] [address] [place] [address] Yoana Clement CRNP [address] [place] [address] Pending Results Name Type Priority Associated Diagnoses Date /Time 50-G GESTATIONAL GLUCOSE, 1 HOUR Lab Routine High-risk in second trimester 09/13/2023 9:40 AM EST CBC WITH WBC DIFFERENTIAL AND ANEMIA REFLEX WORKUP Lab Routine High-risk in second trimester 09/13/2023 9:40 AM EST SYPHILIS ANTIBODY SCREEN WITH REFLEX TO RPR Lab Routine High-risk in second trimester 09/13/2023 9:40 AM EST ANEMIA CBC Lab Routine High-risk in second trimester 09/13/2023 9:40 AM EST DIFFERENTIAL, AUTOMATED Lab Routine High-risk in second trimester 09/13/2023 9:40 AM EST ANEMIA REFLEX CHEMISTRY HOLD Lab Routine High-risk in second trimester 09/13/2023 9:40 AM EST SYPHILIS ANTIBODY SCREEN Lab Routine High-risk in second trimester 09/13/2023 9:40 AM EST Health Maintenance Due Date Last [...] this encounter Medical Devices Implanted Type Area Press Washer Device Identifier Shelf Expiration Date Model / Serial / Lot Reta 13.5 Iud Implanted:Qt y: 1 on 10/16/2020 by Olayinka Acosta MD at OR [facility] N/A: Uterus DELICIA MARIA EUGENIA : [employer] 04/28/2021 [id number] / / [id number] documented as of this encounter Visit Diagnoses Diagnosis High-risk in second trimester documented in this encounter Care Teams [employer] Band Director Relationship Specialty Start Date End Date Shawanda Moraes DO [address] [place] [address] [place] [address] PCP - General Family Medicine 04/12/23 documented as of this encounter
--- OUTSIDE RECORDS SUMMARY | 2023-12-06 10:51 | External Medical Summary ---
Author Name Unknown Address Unknown Organization [facility] [address] [place] [address] Laboratory Report Ordering Provider Test Date Status BASSAMNICOLAS 09/13/2023 09:40:27 Final Observation Date Value Abnormality Reference (Units ) Status Glucose [Moles/volume] in Serum or Plasma --1 hour post 50 g glucose PO 09/13/2023 09:40:27 131 Above high normal 70-129 (mg/dL) Final Performing Location [facility] - [address] [place] [address]
--- OUTSIDE RECORDS SUMMARY | 2023-12-06 10:51 | External Medical Summary ---
Author Name Unknown Address Unknown Organization [facility] - [address] [place] [address] Laboratory Report Ordering Provider Test Date Status NICOLAS BANEGAS 09/15/2023 09:39:15 Final Observation Date Value Abnormality Reference (Units ) Status Glucose, 2-hr post glucose challenge 09/15/2023 09:39:15 104 70-154 (mg/dL) Final Performing Location LABORATORY [facility] [address] [place] [address]
--- OUTSIDE RECORDS SUMMARY | 2023-12-06 10:51 | External Medical Summary | Summary of Care ---
Author Name Unknown Organization [facility] [address] [facility] [address] Phone [phone] Care Team Providers Care Adjunct Mathematics Instructor Name Role Phone Shawanda Moraes Primary Care Provider Reason for Visit * Reason Comments Outpatient Testing Encounter Details Date Type Department Care Team (Late st Contact Info) Description 06/20/2023 12:10 PM EDT Laboratory Laboratory, [facility] [address] [place] [id number] [facility] [address] [place] [address] Arrived Allergies Active Allergy Reactions Criticality Noted Date [...] money to get more. Never true 05/23/2023 [place] Depression Scale Answer Date Recorded [place] Depression Scale Total 0 05/23/2023 The thought [...] Description 07/19/2023 9:45 AM EST Imaging Radiology [facility] [address] [place] [address] 07/19/2023 11:30 AM EST Office Visit Gynecology/Obstetrics Beverley Pastors [address] [place] [address] [place], SHOAIB Beyer [address] [place] [address] Health Maintenance Due Date Last Done Comments [...] this encounter Medical Devices Implanted Type Area Sole Leveler Machine Device Identifier Shelf Expiration Date Model / Serial / Lot Reta 13.5 Iud Implanted:Qt y: 1 on 10/16/2020 by Olayinka Acosta MD at OR [facility] N/A: Uterus DELICIA MARIA EUGENIA : [employer] 04/28/2021 [id number] / / [id number] documented as of this encounter Care Teams Adjunct Mathematics Instructor Relationship Specialty Start Date End Date Shawanda Moraes DO [address] [place], [place] [address] PCP - General Family Medicine 04/12/23 documented as of this encounter
--- OUTSIDE RECORDS SUMMARY | 2023-12-06 10:51 | External Medical Summary | Summary of Care ---
Author Name Unknown Organization [facility] Address [address] [facility] [place] [address] Phone [phone] Care Team Providers Care Blueprint Reproducer Name Role Phone Shawanda Moraes Primary Care Provider Reason for Visit * Reason Comments Return Visit Encounter Details Date Type Department Care Team (Late st Contact Info) Description 07/19/2023 11:30 AM EST Office Visit Gynecology/Obstetric s Beverley Harper [address] [place] [address] Agnes Powell CRNP [address] [place] [address] High-risk in second trimester*; Vapes nicotine containing substance; IUD ; Hepatitis C antibody test positive Allergies Active Allergy Reactions Criticality Noted Date Comments Nickel 10/13/2020 Skin turns blue, blisters Sulfa Antibiotics 05/19/2023 Other Reaction(s): Hives Sulfamethoxazole-Trimethopri m 05/19/2023 Other Reaction(s): Facial swelling and hives documented as of this encounter (statuses as of 07/19/2023) Medications Medication Sig Dispensed Refills Start Date End Date Status Plus 27-1 MG Oral TabletIndications :IUD Take 1 Tablet by mouth daily. 90 Tablet 3 04/12/2023 Active Azithromycin 500 MG Oral Tablet (Zithromax)Indica tions:IUD Take 1 Tablet by mouth once for 1 dose. 1 Tablet 0 04/12/2023 07/19/2023 Discontinued documented as of this encounter (statuses as of 07/19/2023) Active Problems Problem Noted Date Diagnosed Date [...] as of this encounter (statuses as of 07/19/2023) Resolved Problems Problem Noted Date Diagnosed Date Resolved Date Family history of thalassemia 05/23/2023 05/23/2023 Overview: FOB's mother documented as of this encounter (statuses as of 07/19/2023) Social History Tobacco Use Types Packs/Day Years [...] money to get more. Never true 07/07/2023 [place] Depression Scale Answer Date Recorded [place] Depression Scale Total 0 05/23/2023 The thought [...] Sign Reading Time Taken Comments Blood Pressure 106/70 07/19/2023 11:13 AM EST Pulse - - Temperature - - Respiratory Rate - - Oxygen Saturation - - Inhaled Oxygen Concentration - - Weight 81.6 kg (180 lb) 07/19/2023 11:13 AM EST Height 160 cm (5' 3") 07/19/2023 11:13 AM EST Body Mass Index 31.89 07/19/2023 11:13 AM EST documented in this encounter Patient Instructions * Patient Instructions* Agnes Powell CRNP - 07/19/2023 11:32 AM EST Round Ligament Pain: Causes and Treatment Round ligament pain is most common during the 2nd and 3rd trimesters. Women may have a sharp pain in their abdomen or hip area that is either on one side or both. Some women even report pain that extends into the groin area. Round ligament pain is considered a normal part of as your body goes through many different changes. What causes round ligament pain? The round ligament supports the uterus and stretches during . It connects the front portion of the uterus to the groin. These ligaments contract and relax like muscles, but much more slowly. Any movement (including going from a sitting to standing position quickly, laughing, or coughing) that stretches these ligaments by making them contract quickly, can cause a woman to experience pain.Round ligament pain should only last for a few seconds. Stretching is the best way to loosen things up and prevent round ligament pain. Here are our top round ligament pain stretches to get you started: #1 CAT-COW Start on your hands and knees, shoulders above wrists and hips above knees. Breathe in and drop your stomach down, arching your back and looking upward. Then, breathe out and round your upper back toward the ceiling, allowing your head to drop and face your stomach. #2 HIP FLEXOR STRETCH In all fours position with your arm resting on a chair or birthing ball, bring the right leg forward while extending/straightening the left leg back until you feel a stretch in the front of the left thigh. Hold the position for 5-10 seconds. Repeat on the opposite side. #3 SIDE LYING SAVASAHELEN Lie on your left side in a position, tuck your left arm beneath your head, and place a pillowbetween your legs to relieve pressure on your lower back. Flex your hips and remain in this position for several minutes. Inhale deeply as you stretch. #4 THE PELVIC CLOCK Sit on a birthing ball or chair with your feet flat on the floor. Bring your hands to your hips so you can feel the movement in your pelvis as you stretch. Now, imagine a clock resting on your pelvis--with your navel at 12 oclock and pubic bone at 6 oclock. Engage your abs and lengthen your spine. Inhale and tilt your pelvis toward a 3 oclock position. Continue on the inhale and move around the clock, creating a small arch in your lower back. Exhale and bring your pelvis to 9 oclock. Continue your exhale until you reach a neutral 12 oclock position. #5 BUTTERFLY STRETCH Sit upright on a firm surface. Place the soles of your feet together and pulse your legs up and down, like the wings of a butterfly. You should feel a stretch in your inner thighs. For an even deeperstretch, place your hands on your knees for resistance. Other Ways to Relieve Round Ligament Pain While round ligament pain stretches are the best way to reduce pain, there are a few other things you can try to alleviate the discomfort : A belly band to give your bump some extra support Hydration to improve circulation to your growing tissue Rest to allow your muscles to recover from any movement Massage to give that area some extra TLC Acetaminophen to get some medicated pain relief documented in this encounter Progress Notes * Katharina Canales LPN - 07/19/2023 11:11 AM EST 20w3d Denies vaginal bleeding/rom Absent movement Noticing numbness in hands and swelling more in rt hand * Agnes Powell CRNP - 07/19/2023 10:49 AM EST 20w3d No bleeding/cramping. Not feeling movement yet. Anatomy scan today, report in process. +cardiac activity. Recommend trying wrist brace for numbness/swelling. Discussed round ligament pain and stretches to try. Work restriction letter provided. 4 week return SHOAIB Bunch documented in this encounter Plan of Treatment Upcoming Encounters Date Type Department Care Team (Late st Contact Info) Description 08/16/2023 8:15 AM EST Office Visit Gynecology/Obstetrics Christiecely Harper [address] [place] [address] Yoana Clement CRNP [address] [place] [address] Health Maintenance Due Date Last Done Comments [...] this encounter Medical Devices Implanted Type Area Farmworkers Device Identifier Shelf Expiration Date Model / Serial / Lot Reta 13.5 Iud Implanted:Qt y: 1 on 10/16/2020 by Olayinka Acosta MD at OR [facility] N/A: Uterus DELICIA MARIA EUGENIA : [employer] 04/28/2021 [id number] / / [id number] documented as of this encounter Visit Diagnoses Diagnosis High-risk in second trimester- Primary Vapes nicotine containing substance IUD Other specified complication of , unspecified as to episode of care Hepatitis C antibody test positive Other and unspecified nonspecific immunological findings documented in this encounter Care Teams Blueprint Reproducer Relationship Specialty Start Date End Date Shawanda Moraes DO [address] [place] [address] PCP - General Family Medicine 04/12/23 documented as of this encounter
--- OUTSIDE RECORDS SUMMARY | 2023-12-06 10:51 | External Medical Summary | Summary of Care ---
Author Name Unknown Organization [facility] Address [address] [facility] [place] [address] Phone [phone] Care Team Providers Care Certifier Name Role Phone Shawanda Moraes Primary Care Provider Reason for Visit * Reason Onset Date Comments Abnormal Test Results 09/13/2023 Encounter Details Date Type Department Care Team (Late st Contact Info) Description 09/13/2023 Telephone Gynecology/Obstetrics [facility] [address] [place] [address] Yoana Clement CRNP [address] [place] [address] Abnormal Test Results Allergies Active Allergy Reactions Criticality Noted Date [...] money to get more. Never true 07/07/2023 [place] Depression Scale Answer Date Recorded [place] Depression Scale Total 0 05/23/2023 The thought [...] encounter Miscellaneous Notes * Telephone Encounter - Bozena Hancock LPN - 09/13/2023 12:18 PM EST Patient notified of abnormal glucola. The order has been placed in epic. Patient. advised to be NPO after 10pm the night before the test.The patient must stay on the premises for the entire time of the test. Patient counseled to take something to eat for after testing. Patient transferred to appt to schedule. * Telephone Encounter - Yoana Clement CRNP - 09/13/2023 11:43 AM EST Please notify pt that glucola elevated (131). Needs 3hr GTT. Orders placed. documented in this encounter Plan of Treatment Upcoming Encounters Date Type Department Care Team (Late st Contact Info) Description 09/27/2023 9:00 AM EST Office Visit Gynecology/Obstetrics [facility] [address] [place] [address] Yoana Clement CRNP [address] [place] [address] Pending Results Name Type Priority Associated Diagnoses Date /Time GESTATIONAL GLUCOSE TOLERANCE, 3 HOUR Lab Routine Abnormal glucose tolerance in mother complicating 09/15/2023 7:33 AM EST Scheduled Orders Name Type Priority Associated Diagnoses Orde r Schedule GESTATIONAL GLUCOSE TOLERANCE, 3 HOUR Lab Routine Abnormal glucose tolerance in mother complicating Expected: 09/14/2023 (Approximate), Expires: 09/13/2024 Health Maintenance Due Date Last Done Comments [...] this encounter Medical Devices Implanted Type Area Web Content Manager Device Identifier Shelf Expiration Date Model / Serial / Lot Reta 13.5 Iud Implanted:Qt y: 1 on 10/16/2020 by Olayinka Acosta MD at OR [facility] [address] N/A: Uterus DELICIA MARIA EUGENIA : [employer] 04/28/2021 [id number] / / [id number] documented as of this encounter Visit Diagnoses Diagnosis Abnormal glucose tolerance in mother complicating - Primary Abnormal maternal glucose tolerance, complicating , childbirth, or the puerperium, unspecified as to episode of care documented in this encounter Care Teams Certifier Relationship Specialty Start Date End Date Shawanda Moraes DO 6 [facility] [address] [place] [address], [place] [address] PCP - General Family Medicine 04/12/23 documented as of this encounter
--- OUTSIDE RECORDS SUMMARY | 2023-12-06 10:51 | External Medical Summary | Summary of Care ---
Author Name Unknown Organization [facility] Address [address] [facility] [place] [address] Phone [phone] Care Team Providers Care Surgical Device Sales Representative Name Role Phone Shawanda Moraes Primary Care Provider Reason for Visit * Reason Comments Return Visit Encounter Details Date Type Department Care Team (Late st Contact Info) Description 09/13/2023 9:15 AM EST Office Visit Gynecology/Obstetric s Beverley Harper [address] [place] [address] Yoana Clement CRNP [address] [place] [address] High-risk in third trimester*; Vapes nicotine containing [...] money to get more. Never true 07/07/2023 [place] Depression Scale Answer Date Recorded [place] Depression Scale Total 0 05/23/2023 The thought [...] Sign Reading Time Taken Comments Blood Pressure 122/76 09/13/2023 9:20 AM EST Pulse - - Temperature - - Respiratory Rate - - Oxygen Saturation - - Inhaled Oxygen Concentration - - Weight 90.7 kg (200 lb) 09/13/2023 9:20 AM EST Height 160 cm (5' 3") 09/13/2023 9:20 AM EST Body Mass Index 35.43 09/13/2023 9:20 AM EST documented in this encounter Progress Notes * Yoana Clement CRNP - 09/13/2023 9:31 AM EST 28w2d Only complaint is continued swelling of feet, but this is not worsening. Baby is active. No contractions, bleeding, or LOF. Glucola today. Wants to wait until next visit for TDAP. SHOAIB Monroy * Izzy Vail LPN - 09/13/2023 9:20 AM EST 28w3d Doing glucola today Would like tdap at next appt documented in this encounter Plan of Treatment Upcoming Encounters Date Type Department Care Team (Late st Contact Info) Description 09/27/2023 9:00 AM EST Office Visit Gynecology/Obstetrics Beverley Harper [address] [place] [address] Yoana Clement CRNP [address] [place] [address] Health Maintenance Due Date Last Done Comments [...] this encounter Medical Devices Implanted Type Area Salesperson Surgical Appliances Device Identifier Shelf Expiration Date Model / Serial / Lot Reta 13.5 Iud Implanted:Qt y: 1 on 10/16/2020 by Olayinka Acosta MD at OR [facility] N/A: Uterus DELICIA MARIA EUGENIA : [employer] 04/28/2021 [id number] / / [id number] documented as of this encounter Visit Diagnoses Diagnosis High-risk in third trimester- Primary Vapes nicotine containing substance IUD Other specified complication of , unspecified as to episode of care Hepatitis C antibody test positive Other and unspecified nonspecific immunological findings documented in this encounter Care Teams Surgical Device Sales Representative Relationship Specialty Start Date End Date Shawanda Moraes DO 6 [facility] Colon [address] [place] [address] PCP - General Family Medicine 04/12/23 documented as of this encounter
--- OUTSIDE RECORDS SUMMARY | 2023-12-06 10:51 | External Medical Summary ---
Author Name Unknown Address Unknown Organization K01:[facility] - [address] [place] [address] Laboratory Report Ordering Provider Test Date Status NICOLAS BANEGAS 09/13/2023 09:40:27 Final Observation Date Value Abnormality Reference (Units ) Status Treponema pallidum Ab [Presence] in Serum by Immunoassay 09/13/2023 09:40:27 Nonreactive Nonreactive Final No serologic evidence of syp hilis. No additional testing clinicially indicated at this time. Consider repeat testing in 2-4 weeks if acute or primary syphilis is suspected. Performing Location LABORATORY C - [address] [address]
--- OUTSIDE RECORDS SUMMARY | 2023-12-06 10:51 | External Medical Summary ---
Author Name Unknown Address Unknown Organization K0G:[facility] [address] - [address] [place] [address] Laboratory Report Ordering Provider Test Date Status HASEEB RODRIGUEZ 06/20/2023 12:05:55 Final Observation Date Value Abnormality Reference (Units ) Status SYNC LEUKOCYTES IN BLOOD BY AUTOMATED COUNT 06/20/2023 12:05:55 11.75 Above high normal 4.00-10.80 (K/uL) Final Segs 06/20/2023 12:05:55 71.0 40.0-75.0 (%) Final Lymphs % 06/20/2023 12:05:55 20.0 18.0-42.0 (%) Final Monos 06/20/2023 12:05:55 7.9 1.0-11.0 (%) Final Eosinophils 06/20/2023 12:05:55 0.9 0.0-6.0 (%) Final Basos 06/20/2023 12:05:55 0.2 0.0-2.0 (%) Final Absolute Segs 06/20/2023 12:05:55 8.35 Above high normal 1.80-7.70 (K/uL) Final Lymphs, absolute 06/20/2023 12:05:55 2.35 1.00-4.80 (K/ul) Final Monos, Abs 06/20/2023 12:05:55 0.93 0.00-1.10 (K/uL) Final Eos, Abs 06/20/2023 12:05:55 0.10 0.00-0.70 (K/uL) Final Basos, Abs 06/20/2023 12:05:55 0.02 0.00-0.20 (K/uL) Final Performing Location LAB[facility]ORY [facility] - [address] [place] [address]
--- OUTSIDE RECORDS SUMMARY | 2023-12-06 10:51 | External Medical Summary ---
Author Name Unknown Address Unknown Organization K0G:[facility]ATORY [facility] [place] [address] - [address] [place] [address] Laboratory Report Ordering Provider Test Date Status HASEEB RODRIGUEZ 06/20/2023 12:05:55 Final Observation Date Value Abnormality Reference (Units ) Status WBC, Total 06/20/2023 12:05:55 11.75 Above high normal 4 .00-10.80 (K/uL) Final RBC 06/20/2023 12:05:55 4.92 3.85-5.15 (M/uL) Final Hemoglobin 06/20/2023 12:05:55 14.9 12.0-15.3 (g/dL) Final HCT 06/20/2023 12:05:55 42.3 36.0-45.2 (%) Final MCV 06/20/2023 12:05:55 86.0 81.5-97.5 (fL) Final MCH 06/20/2023 12:05:55 30.3 27.0-34.0 (pg) Final MCHC 06/20/2023 12:05:55 35.2 32.0-36.0 (g/dL) Final RDW 06/20/2023 12:05:55 14.0 11.5-15.5 (%) Final Platelets 06/20/2023 12:05:55 253 140-400 (K /uL) Final MPV 06/20/2023 12:05:55 10.3 6.6-11.1 ( fL) Final Performing Location LABORATORY [facility] [place] [address] [place] [address]
--- OUTSIDE RECORDS SUMMARY | 2023-12-06 10:51 | External Medical Summary ---
Author Name Unknown Address Unknown Organization K0G:[facility] [place] [facility] [address] - [address] [place] [address] Laboratory Report Ordering Provider Test Date Status BASSAMNICOLAS 09/15/2023 07:33:26 Final Based on ACOG guideline, ges tational diabetes mellitus is diagnosed when any of the following is met:
Fasting is greater than or equal to 95 mg/dL
1 hour is greater than or equal to 180 mg/dL
2 hour is greater than or equal to 155 mg/dL
3 hour is greater than or equal to 140 mg/dL Observation Date Value Abnormality Reference (Units ) Status Glucose, fasting 09/15/2023 07:33:26 90 70- 94 (mg/dL) Final Performing Location LABORATORY [facility] [place] [address] - [address] [place] [address]
--- OUTSIDE RECORDS SUMMARY | 2023-12-06 10:51 | External Medical Summary | Summary of Care ---
Author Name Unknown Organization [facility] Address [address] [facility] [place] [address] Phone [phone] Care Team Providers Care Plant Assigner Name Role Phone Shawanda Moraes Primary Care Provider Reason for Visit * Reason Comments Follow Up Encounter Details Date Type Department Care Team (Late st Contact Info) Description 08/26/2023 3:30 PM EST Immunization/I njection Gynecology/Obstetric s [facility] [address] [place] [address] Gw, Nurse Obgyn Injection [address] [facility] [place] [address] Leg swelling in *; Vapes nicotine containing substance; High-risk in first trimester; IUD ; Hepatitis C antibody test positive Allergies Active Allergy Reactions Criticality Noted Date Comments Nickel 10/13/2020 Skin turns blue, blisters Sulfa Antibiotics 05/19/2023 Other Reaction(s): Hives Sulfamethoxazole-Trimethopri m 05/19/2023 Other Reaction(s): Facial swelling and hives documented as of this encounter (statuses as of 08/26/2023) Medications Medication Sig Dispensed Refills Start Date End Date Status Plus 27-1 MG Oral TabletIndications:IUD Take 1 Tablet by mouth daily. 90 Tablet 3 04/12/2023 Active documented as of this encounter (statuses as of 08/26/2023) Active Problems Problem Noted Date Diagnosed Date [...] as of this encounter (statuses as of 08/26/2023) Resolved Problems Problem Noted Date Diagnosed Date Resolved Date Family history of thalassemia 05/23/2023 05/23/2023 Overview: FOB's mother documented as of this encounter (statuses as of 08/26/2023) Social History Tobacco Use Types Packs/Day Years [...] money to get more. Never true 07/07/2023 [place] Depression Scale Answer Date Recorded [place] Depression Scale Total 0 05/23/2023 The thought [...] Sign Reading Time Taken Comments Blood Pressure 126/74 08/26/2023 2:31 PM EST Pulse - - Temperature - - Respiratory Rate - - Oxygen Saturation - - Inhaled Oxygen Concentration - - Weight 83.9 kg (185 lb) 08/26/2023 2:31 PM EST Height 160 cm (5' 3") 08/26/2023 2:31 PM EST Body Mass Index 32.77 08/26/2023 2:31 PM EST documented in this encounter Nursing Notes * Pauline Davalos RN - 08/26/2023 2:31 PM EST Patient here today for nurse BP check. + b/l swelling in hands, and LE Denies RUQ pain. Urine negative Denies any CP/SOB/Redness or severe pain in LE Denies LÓPEZ/blurry vision Patient aware to elevate legs frequently, push fluids, wear compression stockings and advised to call back with any new or worsening concerns. documented in this encounter Plan of Treatment Upcoming Encounters Date Type Department Care Team (Late st Contact Info) Description 09/13/2023 8:40 AM EST Laboratory Laboratory, [facility] [address] [place] [phone] [facility] [place] [address] 09/13/2023 9:15 AM EST Office Visit Gynecology/Obstetrics [facility] [address] [place] [address] Yoana Clement CRNP [address] [place] [address] Health Maintenance Due Date Last Done Comments [...] this encounter Medical Devices Implanted Type Area Child Care Worker Device Identifier Shelf Expiration Date Model / Serial / Lot Reta 13.5 Iud Implanted:Qt y: 1 on 10/16/2020 by Olayinka Acosta MD at OR [facility] N/A: Uterus DELICIA MARIA EUGENIA : [employer] 04/28/2021 [id number] / / [id number] documented as of this encounter Procedures Procedure Name Priority Date/Time Associated Diagnosis Comments URINALYSIS, POINT OF CARE (ENTER/EDIT) Routine 08/26/2023 Leg swelling in documented in this encounter Results * URINALYSIS, POINT OF CARE (ENTER/EDIT) (08/26/2023) Color, Urine Yellow Yellow or Light Yellow Clarity, Urine Clear Clear Glucose, Urine Negative Negative mg/dL Bilirubin, Urine Negative Negative Ketone, Urine Negative Negative mg/dL Specific [place], Urine 1.025 1.003 - 1.030 Blood, Urine Negative Negative pH, Urine 7.0 5.0 - 7.5 units Protein, Urine Negative Negative mg/dL Urobilinogen, Urine 0.2 0.2 - 1.0 mg/dL Nitrite, Urine Negative Negative Esterase, Urine Trace Negative Urine 08/26/2023 Olayinka Acosta MD LAB POINT OF CARE TE ST ENTER/EDIT ORDERABLES documented in this encounter Visit Diagnoses Diagnosis Leg swelling in - Primary Edema or excessive weight gain in , unspecified as to episode of care Vapes nicotine containing substance High-risk in first trimester IUD Other specified complication of , unspecified as to episode of care Hepatitis C antibody test positive Other and unspecified nonspecific immunological findings documented in this encounter Care Teams Plant Assigner Relationship Specialty Start Date End Date Shawanda Moraes DO [address] [facility] [address] Rashid [address] [place] [address], [place] [address] PCP - General Family Medicine 04/12/23 documented as of this encounter
--- OUTSIDE RECORDS SUMMARY | 2023-12-06 10:51 | External Medical Summary ---
Author Name Unknown Address Unknown Organization K01[place] [place] [address] [place] [address] Laboratory Report Ordering Provider Test Date Status NICOLAS BANEGAS 09/13/2023 09:40:27 Final Observation Date Value Abnormality Reference (Units ) Status SYNC LEUKOCYTES IN BLOOD BY AUTOMATED COUNT 09/13/2023 09:40:27 13.48 Above high normal 4.00-10.80 (K/uL) Final Segs 09/13/2023 09:40:27 81.0 Above high normal 40.0-75.0 (%) Final Lymphs % 09/13/2023 09:40:27 10.7 Below low normal 18.0-42.0 (%) Final Monos 09/13/2023 09:40:27 5.3 1.0-11.0 (%) Final Eosinophils 09/13/2023 09:40:27 0.7 0.0-6.0 (%) Final Basos 09/13/2023 09:40:27 0.5 0.0-2.0 (%) Final Immature Granulocyte, Percent 09/13/2023 09:40:27 1.8 0.0-2.0 (%) Final Absolute Segs 09/13/2023 09:40:27 10.92 Above high normal 1.80-7.70 (K/uL) Final Lymphs, absolute 09/13/2023 09:40:27 1.44 1.00-4.80 (K/ul) Final Monos, Abs 09/13/2023 09:40:27 0.71 0.00-1.10 (K/uL) Final Eos, Abs 09/13/2023 09:40:27 0.10 0.00-0.70 (K/uL) Final Basos, Abs 09/13/2023 09:40:27 0.07 0.00-0.20 (K/uL) Final Immature Granulocytes, Number 09/13/2023 09:40:27 0.24 Above high normal 0.00-0.20 (K/uL) Final [place] Location [facility] [place] [address] [place] [address]
[2023-12-06] MEDS: LACTATED RINGER'S 1,000 ML IV PRN (12:55)
[2023-12-06] MEDS: FAMOTIDINE 10 MG TABLET PO SCH (21:20)
[2023-12-07 06:18] LABS: Basophils # (auto) 0.09 K/uL (0.00-0.20); Basophils % (auto) 0.6 %; Eosinophils % (auto) 1.3 %; Hematocrit (blood only) 41.2 % (37.0-47.0); Hemoglobin 14.7 g/dl (12.0-16.0); Immature Granulocytes # (auto) 0.12 K/uL (0.01-0.20); Immature Granulocytes % (auto) 0.8 %; Lymphocytes # (auto) 2.13 K/uL (1.20-3.40); Lymphocytes % (auto) 13.6 %; Mean Corpuscular Hemoglobin 30.8 pg (25.0-34.0); Mean Corpuscular Hgb Conc 35.7 g/dL (32.0-36.0); Mean Corpuscular Volume 86.4 fL (80.0-100.0); Mean Platelet Volume 11.8 fL (9.4-12.4); Monocytes # (auto) 1.05 K/uL (0.11-0.59); Monocytes % (auto) 6.7 %; Platelet Count 243 K/uL (130-400); RDW Coefficient of Variation 13.8 % (11.5-14.5); RDW Standard Deviation 43.3 fL (36.4-46.3); Red Blood Count 4.77 M/uL (4.20-5.40); White Blood Count 15.69 K/ul (4.8-10.8)
--- NOTE | 2023-12-07 06:34 | Obstetrical Progress Note ---
Date of Service December 07, 2023 Assessment & Plan (1) 40 weeks gestation of : Plan: Patient has received 4 doses of basal Postel 50 mcg p.o. Patient to eat breakfast this morning and take a shower Plan to start pit after Epidural if patient request Anticipate spontaneous vaginal delivery (2) Gestational hypertension: Plan: Based on elevated blood pressure of 140/86 on 11/15/2023 at clinic. Admission blood pressure 140/89 PIH labs within normal limits. Last blood pressure 135/82 (3) Hepatitis C antibody test positive: Plan: Repeat testing still pending at this time Admission and Anticipated Discharge Date Admission Date: December 06, 2023 Subjective Patient comfortable in bed, denies any strong contractions. Feeling well. No other complaints Physical Exam Genitourinary: heart tracing: Baseline 130, moderate variability, positive accelerations no decelerations, category 1 tracing Tocometer: Contractions irregular Cervix: Fingertip/50/-3 Results & Data Vital Signs (Past 12 Hours) Vital Signs Temp Pulse Resp BP 12/07/23 04:00 16 12/07/23 04:00 36.6 C 16 12/07/23 03:59 95 H 135/82 12/06/23 23:48 100 H 12/06/23 23:48 132/91 12/06/23 23:46 16 12/06/23 23:46 36.4 C L 16 12/06/23 19:00 36.7 C 16 12/06/23 18:58 100 H 12/06/23 18:58 140/88 (2) Gestational hypertension Trimester: third trimester Qualified Code(s): O13.3 - Gestational [- induced] hypertension without significant proteinuria, third trimester
[2023-12-07 06:44] LABS: Alanine Aminotransferase 11 U/L (7-52); Albumin Globulin Ratio 1.3 (0.9-2); Albumin Level 3.5 gm/dl (3.4-5.0); Alkaline Phosphatase 161 U/L (34-104); Anion Gap 10 (3-11); Aspartate Aminotransferase 15 U/L (13-39); BUN Creatinine Ratio 18.8 (10-20); Bilirubin,Total 0.4 mg/dl (0.2-1.0); Blood Urea Nitrogen 9 mg/dl (6-23); Carbon Dioxide 20 mmol/L (21-32); Chloride 105 mmol/L (98-107); Creatinine Clr Calc Pharmacy 212.4 ml/min; Est GFR (African American) > 150.0 ml/min; Est GFR (Non-African American) 138.3 ml/min; Globulin 2.8 gm/dl (2.5-4.0); Glucose 107 mg/dl (70-99(Fasting)); Potassium 3.7 mmol/L (3.5-5.1); Sodium 135 mmol/L (136-145); Total Protein 6.3 gm/dl (6.0-8.3)
--- NOTE | 2023-12-07 10:21 | Labor Progress Brief Note ---
Date of Service December 07, 2023 Assessment & Plan Admission and Anticipated Discharge Date Admission Date: December 06, 2023 Physical Exam Genitourinary: OB Exam Monitor Tracing: + external FHT monitor used, + external uterine monitor used, + category I and + normal FHT variability Will continue Cytotec for cervical ripening patient aware of plan Results & Data Vital Signs (Past 12 Hours) Vital Signs Temp Pulse Resp BP 12/07/23 07:31 108 H 132/91 12/07/23 07:30 36.8 C 18 12/07/23 04:00 16 12/07/23 04:00 36.6 C 16 12/07/23 03:59 95 H 135/82 12/06/23 23:48 100 H 12/06/23 23:48 132/91 12/06/23 23:46 16 12/06/23 23:46 36.4 C L 16
--- NOTE | 2023-12-07 22:15 | Labor Progress Brief Note ---
Date of Service December 07, 2023 Assessment & Plan Admission and Anticipated Discharge Date Admission Date: December 06, 2023 Physical Exam Genitourinary: OB Exam Monitor Tracing: + external FHT monitor used, + external uterine monitor used, + category I and + normal FHT variability Baker placed into cervix with 30 ml. saline in balloon Results & Data Vital Signs (Past 12 Hours) Vital Signs Temp Pulse Resp BP 12/07/23 19:00 36.6 C 16 12/07/23 18:58 107 H 135/84 12/07/23 15:27 18 12/07/23 15:27 36.6 C 18 12/07/23 15:26 95 H 143/90 H 12/07/23 11:31 16 12/07/23 11:31 36.7 C 16 12/07/23 11:30 96 H 135/93
--- NOTE | 2023-12-08 04:05 | Labor Progress Brief Note ---
Date of Service December 08, 2023 Assessment & Plan Admission and Anticipated Discharge Date Admission Date: December 06, 2023 Physical Exam Genitourinary: Manual OB Exam: + cervical dilation 1 cm and 2 cm, + cervical effacement 50% and + station high OB Exam Monitor Tracing: + external FHT monitor used, + category I and + normal FHT variability will start Oxytocin to augment contractions Results & Data Vital Signs (Past 12 Hours) Vital Signs Temp Pulse Resp BP 12/08/23 03:30 116 H 143/86 H 12/08/23 03:00 36.6 C 12/08/23 00:34 91 H 131/76 12/08/23 00:30 16 12/08/23 00:30 36.6 C 16 12/07/23 19:00 36.6 C 16 12/07/23 18:58 107 H 135/84
[2023-12-08] MEDS: OXYTOCIN 30 UNITS/NSS 30 UNITS/500 ML BAG IV PRN (04:42)
[2023-12-08] MEDS: BUTORPHANOL TARTRATE 2 MG/ML VIAL IV PRN (05:53)
[2023-12-08 06:39] LABS: Alanine Aminotransferase 11 U/L (7-52); Albumin Globulin Ratio 1.2 (0.9-2); Albumin Level 3.5 gm/dl (3.4-5.0); Alkaline Phosphatase 168 U/L (34-104); Anion Gap 10 (3-11); Aspartate Aminotransferase 16 U/L (13-39); BUN Creatinine Ratio 16.7 (10-20); Bilirubin,Total 0.4 mg/dl (0.2-1.0); Blood Urea Nitrogen 9 mg/dl (6-23); Calcium 9.5 mg/dl (8.6-10.3); Carbon Dioxide 19 mmol/L (21-32); Chloride 107 mmol/L (98-107); Creatinine Clr Calc Pharmacy 188.8 ml/min; Est GFR (African American) > 150.0 ml/min; Glucose 91 mg/dl (70-99(Fasting)); Sodium 136 mmol/L (136-145); Total Protein 6.5 gm/dl (6.0-8.3)
[2023-12-08 06:44] LABS: Basophils # (auto) 0.08 K/uL (0.00-0.20); Basophils % (auto) 0.4 %; Eosinophils # (auto) 0.04 K/uL (0.00-0.50); Eosinophils % (auto) 0.2 %; Hematocrit (blood only) 42.3 % (37.0-47.0); Hemoglobin 15.2 g/dl (12.0-16.0); Immature Granulocytes # (auto) 0.13 K/uL (0.01-0.20); Immature Granulocytes % (auto) 0.7 %; Lymphocytes # (auto) 1.79 K/uL (1.20-3.40); Lymphocytes % (auto) 9.7 %; Mean Corpuscular Hemoglobin 30.9 pg (25.0-34.0); Mean Corpuscular Hgb Conc 35.9 g/dL (32.0-36.0); Mean Platelet Volume 11.7 fL (9.4-12.4); Monocytes # (auto) 1.19 K/uL (0.11-0.59); Monocytes % (auto) 6.5 %; Neutrophils # (auto) 15.15 K/uL (1.40-6.50); Neutrophils % (auto) 82.5 %; Platelet Count 245 K/uL (130-400); RDW Coefficient of Variation 13.7 % (11.5-14.5); RDW Standard Deviation 42.7 fL (36.4-46.3); Red Blood Count 4.92 M/uL (4.20-5.40); White Blood Count 18.38 K/ul (4.8-10.8)
[2023-12-08] MEDS: LACTATED RINGER'S 1,000 ML IV SCH (08:30)
[2023-12-08] MEDS: TERBUTALINE SULFATE 1 MG/ML VIAL ONE (08:38)
[2023-12-08] MEDS ORDERED: PROPOFOL IV EMULSION 10 MG/ML 20 ML VIAL IV ONE (08:39)
[2023-12-08] MEDS ORDERED: fentaNYL citrate PF 100 MCG/2 ML VIAL ONE (08:39)
[2023-12-08] MEDS ORDERED: PHENYLEPHRINE 100MCG/ML 10ML SYR IV ONE ×2 (08:39→09:12)
[2023-12-08] MEDS ORDERED: MoRPHine SULFATE PF 1 MG/ML 10 ML AMP/VIAL ONE (08:40)
--- NOTE | 2023-12-08 08:41 | Obstetrical Progress Note ---
Date of Service December 08, 2023 Assessment & Plan Admission and Anticipated Discharge Date Admission Date: December 06, 2023 Subjective Patient seen and examined. I get the sign out from Dr. Lantigua. I reviewed her office records and confirm with her. She is a 22-year-old [id number] at 40 weeks and 4 days of gestation who was admitted on December 05 for induction of labor for gestational hypertension and postdates. She received 5 doses of p.o. Cytotec and then trial of Baker balloon last night when she started having late heart rate decelerations after contractions. There were times that baby looked reassuring and she was started on oxytocin this morning on a low-dose protocol. It was at 2 mIU/min and then stopped by her nurse due to heart rate deceleration and decreased variability. When I came this morning she was complaining of pain, 8 out of 10, contractions every 2 to 3 minutes. I checked her cervix and it was 3 to 4 cm, 50% effaced, had is -3, the tight bulging bag which ruptured spontaneously during exam. Large amount of dark meconium stained fluid came out. heart rate had another decelerations to 80s for 2 minutes and then recovered to baseline at 150s. I recommended delivery due to ongoing category 2 strip, dark meconium fluid and remote from delivery. She understood the risks and benefits and signed an informed consent. Results & Data Vital Signs (Past 12 Hours) Vital Signs Temp Pulse Resp BP Pulse Ox 12/08/23 08:18 130 H 98 12/08/23 08:13 101 H 95 12/08/23 08:08 98 H 97 12/08/23 08:03 92 H 94 12/08/23 08:00 18 12/08/23 08:00 18 12/08/23 07:58 95 12/08/23 07:58 95 H 12/08/23 07:58 96 H 123/77 12/08/23 07:53 94 H 94 12/08/23 07:48 104 H 95 12/08/23 07:43 122 H 96 12/08/23 07:38 108 H 94 12/08/23 07:33 106 H 95 12/08/23 07:30 18 12/08/23 07:30 36.7 C 18 12/08/23 07:28 107 H 98 12/08/23 07:23 106 H 95 12/08/23 07:18 113 H 96 12/08/23 07:13 114 H 97 12/08/23 07:08 115 H 96 12/08/23 07:03 104 H 94 12/08/23 06:58 108 H 137/90 95 12/08/23 06:53 106 H 93 12/08/23 06:48 106 H 93 12/08/23 06:43 108 H 93 12/08/23 06:38 105 H 93 12/08/23 06:33 107 H 94 12/08/23 06:28 110 H 93 12/08/23 06:23 102 H 93 12/08/23 06:18 99 H 94 12/08/23 06:13 103 H 94 12/08/23 06:08 103 H 93 12/08/23 05:57 113 H 132/73 12/08/23 04:04 112 H 146/103 H 12/08/23 03:30 116 H 143/86 H 12/08/23 03:00 36.6 C 12/08/23 00:34 91 H 131/76 12/08/23 00:30 16 12/08/23 00:30 36.6 C 16
[2023-12-08] MEDS: ceFAZolin 3000MG 3,000 MG/72.5 ML BAG IV SCH (08:50)
--- NOTE | 2023-12-08 08:50 | Anesthesiology Consultation ---
Date of Service December 08, 2023 Assessment & Plan ASA [id number] Proposed Anesthesia Anesthesia Type: Spinal Risk / Benefits Reviewed With: PT / POA / Parent / Guardian, Accepts Plan and Informed Consent Obtained Additional Comments: spinal per ob History Surgery Operation Date: 12/08/23 08:40 Proposed Procedures p Section in LD - Angelique Westfall MD Height/Weight Height: 5 ft 4 in Weight: 102.512 kg Allergies Allergy/AdvReac Type Severity Reaction Status Date / Time Sulfa (Sulfonamide Allergy Severe Hives Verified 12/06/23 08:03 Antibiotics) nickel AdvReac Intermediate Itching Verified 12/06/23 08:03 Medications Home Medications Medication Instructions Recorded Confirmed Last Taken Pepcid 1 tab PO BID 12/06/23 12/06/23 12/06/23 06:00 1 tab PO DAILY 12/06/23 12/06/23 12/06/23 06:00 Active Medications Generic Name Dose Route Start Last Admin Trade Name Freq PRN Reason Stop Dose Admin Butorphanol Tartrate 1 mg 12/07/23 14:34 12/08/23 05:53 Butorphanol Tartrate 2 Mg/Ml Vial IV 01/06/24 14:33 1 mg Q2HWA PRN Administration Pain Famotidine 10 mg 12/06/23 21:00 12/08/23 01:30 Famotidine 10 Mg Tablet PO 01/05/24 20:59 Not Given BID ASHLEIGH Oxytocin 30 units in 500 mls @ 0 mls/hr 12/08/23 04:05 12/08/23 07:57 Pitocin 30 Units/Nss IV 12/10/23 04:04 0 units/hr .Q0M PRN 0 mls/hr Labor Induction/Augmentation Titration Protocol 0 UNITS/HR Lactated Ringer's 1,000 mls @ 999 mls/hr 12/08/23 08:45 12/08/23 08:30 Lr IV 12/08/23 09:45 999 mls/hr .Q1H1M ASHLEIGH Administration Misoprostol 50 mcg 12/06/23 08:25 12/08/23 07:54 Misoprostol 50 Mcg Tab PO 01/05/24 08:24 Not Given Q4 ASHLEIGH Past Medical History Medical History Remove/insert IUD UTI (urinary tract infection) Acute pharyngitis Exercise / Class Metabolic Activity II 4-5 Yardwork/Stairs/Walk up hill Past Anesthesia History No Hx of Anesthesia Complications and No Family Hx of Anesthesia Complications History of PONV No Hx of PONV and No Hx of Motion Sickness Social History Smoking cigarettes per day: Patient states that she used to vape but quit 6 months ago. Do You Dip or Chew Tobacco: No Hx Alcohol Use: No Hx Substance Use: No Review of Systems denies fever/cough/ colds/ chest pain/ SOB/ CLIFF denies CLIFF Physical Exam Vital Signs Last Vital Signs Temp 36.7 C 12/08/23 07:30 Pulse 130 H 12/08/23 08:18 Resp 18 12/08/23 08:00 BP 123/77 12/08/23 07:58 Pulse Ox 98 12/08/23 08:18 ENMT Mouth: no TMJ abnormality and no dentition abnormality Thyromental Distance: > or= 3.5 Finger Breadths Mallampati Class: II Neck neck extension not limited Respiratory normal respiratory effort; no respiratory distress Auscultation: lungs clear to auscultation bilaterally Cardiovascular Rate/Rhythm: regular rate and regular rhythm Neurologic moves all extremities Psychiatric Orientation: alert and oriented x 3 Testing Laboratory Results 12/08/23 05:59 12/08/23 05:59 Blood Type A Positive 12/06/23 08:30 Blood Type Cancelled 12/06/23 08:30 Antibody Screen Cancelled 12/06/23 08:30 Antibody Screen NEGATIVE 12/06/23 08:30
[2023-12-08] MEDS: AZITHROMYCIN 500 MG in DEXTROSE 5% 250 ML IV SCH (08:54)
[2023-12-08] MEDS ORDERED: PHENYLEPHRINE HCL 10 MG/ML VIAL ONE (09:13)
[2023-12-08] MEDS ORDERED: OXYTOCIN 10 UNITS/ML VIAL ONE (09:20)
[2023-12-08] MEDS ORDERED: MoRPHine SULFATE 2 MG/ML CARP IV PRN (09:37)
[2023-12-08] MEDS ORDERED: LACTATED RINGER'S 500 ML IV PRN (09:37)
[2023-12-08] MEDS ORDERED: HYDROmorphone INJ 0.5 MG/0.5 ML SYR IV PRN (09:37)
[2023-12-08] MEDS ORDERED: ONDANSETRON INJ 2 MG/ML 2 ML VIAL IV PRN (09:37)
[2023-12-08] MEDS ORDERED: diphenhydrAMINE 50 MG/ML VIAL IV PRN (09:37)
[2023-12-08] MEDS ORDERED: NALOXONE HCL 0.08 MG in SYRINGE 1.8 ML IV PRN (09:37)
[2023-12-08] MEDS ORDERED: ePHEDrine sulfate 50 MG/ML AMP IV PRN (09:37)
[2023-12-08] MEDS ORDERED: NALOXONE HCL 0.4 MG/1 ML VIAL/CARP IV PRN (09:37)
[2023-12-08] MEDS ORDERED: NALBUPHINE HCL 5 MG in SYRINGE 0 ML IV PRN (09:37)
[2023-12-08] MEDS ORDERED: NALOXONE HCL 1 MG in SODIUM CHLORIDE 0.9% 1,000 ML IV PRN (09:37)
[2023-12-08] MEDS ORDERED: NO NARCOTICS OR SEDATIVES SCH (09:45)
[2023-12-08] MEDS ORDERED: DC INTRASPINAL MORPHINE SCH (09:45)
[2023-12-08] MEDS ORDERED: SENNA 8.6 MG TAB PO PRN (09:59)
[2023-12-08] MEDS ORDERED: MAGNESIUM HYDROXIDE SUSP 30 ML UDC PO PRN (09:59)
[2023-12-08] MEDS ORDERED: HYDROCORTISONE ACETATE 25 MG SUPP PR PRN (09:59)
[2023-12-08] MEDS ORDERED: BENZOCAINE 20% SPRY 85 APPLN/85 GM CAN EXT PRN (09:59)
[2023-12-08 10:01] LABS: Base Excess Cord Arterial Bld -7.1 mEq/L (-9-1.8); CO2 Cord Arterial Blood 55 mmHg (39.1-73.5); HCO3 Cord Arterial Blood 22 mmol/L (19.7-28.5); Oxygen Sat Cord Arterial Blood < 60.0 % (<60); PO2 Cord Arterial Blood < 20 mmHg (4.1-31.7)
[2023-12-08 10:03] LABS: Base Excess Cord Venous Blood -7.6 mEq/L (-7.7-1.9); Cord Venous Blood HCO3 22 mmol/L (18.4-26.8); Cord Venous Blood PCO2 58 mmHg (30.4-57.2); Cord Venous Blood PO2 < 20 mmHg (14.1-43.3); Cord Venous Blood pH 7.18 (7.20-7.44); O2 Saturation Cord Venous Bld < 60.0 % (<68)
--- NOTE | 2023-12-08 10:05 | Operative Report ---
Post Operative Report Pre & Post Diagnosis Operation Date: 12/08/23 08:40 <No data on this case meets the specified criteria> I identified the patient and participated in the time-out.: Yes Procedure Operation Date: 12/08/23 08:40 Primary low-transverse with financial skin incision Surgeon Angelique Westfall MD Scrum Coach HANK Pérez Estimated Blood Loss 319 Findings Consistent with Post-Op Diagnosis Baby was a viable female delivered at 09:15 AM, Apgars were 8/9, weight is 3055 g Maternal findings: Normal uterus, fallopian tubes and ovaries Specimens Placenta and the umbilical cord Drains Baker catheter drained 100 ml of clear urine Anesthesia Type Spinal Complications none Disposition Accompanied Patient To Recovery: Yes Indications 22-year-old -0-1-0 at 40 weeks and 4 days of gestation, induction of labor for gestational hypertension and postdates since December 05, nonreassuring heart rate with recurrent late decelerations, dark meconium stained fluid, remote from delivery. Description of Procedure Patient was taken to operating room where a spinal anesthesia was given without difficulty. She was placed in dorsal supine position with a leftward tilt. She was prepared and draped in usual sterile fashion. A financial skin incision was made and carried through to the underlying layer of fascia with the Bovie. Fascia was incised in the midline and incision was extended laterally with the help of Booker scissors. Then the upper aspect of the fascial incision was grasped with 2 Leno clamps elevated the underlying rectus muscles were dissected off sharply with Booker scissors. Same thing was done on the lower incision. Then the muscles were in the midline, peritoneum was identified grasped with 2 pickups and entered sharply with Metzenbaum scissors. Peritoneal incision was extended superior and inferiorly with good visualization of the bladder. The bladder blade was inserted. Vesicouterine peritoneum was identified, grasped with pickups and entered sharply with Metzenbaum scissors, bladder flap was created digitally and bladder blade was reinserted. Uterus was incised in transverse fashion, incision was extended laterally with our appendage scissors, membranes were ruptured and dark meconium stained fluid was obtained. Baby head was delivered without difficulty, followed by shoulders with minimal traction. There was a loose nuchal cord around neck x 1 which was reduced. Mouth and nose were suctioned and the cord was cut then the was handed off to the pediatric team. Then the placenta was delivered manually as intact and complete. Unable to externalize the uterus and decision was made to keep the uterus inside during surgery. Uterine cavity was cleaned. Uterine incision was repaired with 0 Vicryl in a running locked fashion, second umbricating layer was placed with the same suture in running locked fashion. Excellent hemostasis achieved. The pelvis was irrigated with warm normal saline and suctioned. Incision was checked of anesthetic again. The ovaries and fallopian tubes were checked to be normal. The parietal peritoneum was reapproximated with 3-0 Vicryl in a running fashion and the muscles were reapproximated in the same suture in a running fashion. All of the fascia and rectus muscles were hemostatic. Rectus fascia was reapproximated with 0 Vicryl starting from both corners meeting in the midline. Subcuticular fat tissue was brought together with 2-0 Vicryl in a running fashion, skin was closed with 4-0 Monocryl in a subcuticular cuticular fashion. The mom and baby tolerated procedure well. Sponge needle instrument count was correct x3. No complications happened, I was present during whole procedure. My physician office assistant was needed for retraction, hemostasis and aid during delivery of I attest to the content of the Intraoperative Record and any orders documented therein. Any exceptions are noted below.
--- NOTE | 2023-12-08 12:39 | Anesthesiology Progress Note ---
Date of Service December 08, 2023 Anesthesia Post Procedure Vital Signs Vital Signs: Temp Pulse Resp BP Pulse Ox 12/08/23 12:33 112 H 95 12/08/23 12:28 112 H 96 12/08/23 12:24 106 H 94 12/08/23 12:23 108 H 94 12/08/23 12:18 116 H 96 12/08/23 12:17 115 H 130/78 94 12/08/23 12:13 115 H 96 12/08/23 12:10 36.8 C 112 H 18 96 12/08/23 12:08 115 H 95 12/08/23 12:03 114 H 96 12/08/23 12:02 120 H 94 12/08/23 12:00 111 H 18 96 12/08/23 11:58 111 H 96 12/08/23 11:57 111 H 94 12/08/23 11:53 120 H 95 12/08/23 11:48 119 H 97 12/08/23 11:43 121 H 96 12/08/23 11:38 116 H 97 12/08/23 11:33 112 H 96 12/08/23 11:32 118 H 135/78 12/08/23 11:28 118 H 97 12/08/23 11:23 119 H 95 12/08/23 11:22 114 H 143/70 H 12/08/23 11:18 118 H 96 12/08/23 11:13 98 12/08/23 11:13 104 H 12/08/23 11:13 105 H 182/79 H 12/08/23 11:12 118 H 172/67 H 12/08/23 11:10 36.7 C 112 H 16 96 12/08/23 11:08 110 H 98 12/08/23 11:03 108 H 98 12/08/23 11:02 112 H 160/68 H 12/08/23 11:00 118 H 18 97 12/08/23 10:58 110 H 98 12/08/23 10:53 112 H 99 12/08/23 10:50 118 H 18 97 12/08/23 10:48 117 H 99 12/08/23 10:45 115 H 134/73 12/08/23 10:43 119 H 167/127 H 99 12/08/23 10:40 16 12/08/23 10:38 113 H 99 12/08/23 10:33 115 H 100 12/08/23 10:32 127 H 115/66 12/08/23 10:28 115 H 99 12/08/23 10:23 112 H 100 12/08/23 10:22 111 H 124/67 12/08/23 10:20 36.7 C 108 H 18 98 12/08/23 10:18 121 H 100 12/08/23 10:13 117 H 100 12/08/23 10:10 36.4 C L 16 12/08/23 10:09 116 H 131/66 12/08/23 10:08 121 H 100 12/08/23 08:18 130 H 98 12/08/23 08:13 101 H 95 12/08/23 08:08 98 H 97 12/08/23 08:03 92 H 94 12/08/23 08:00 18 12/08/23 08:00 18 12/08/23 08:00 18 12/08/23 08:00 18 12/08/23 07:58 95 12/08/23 07:58 95 H 12/08/23 07:58 96 H 123/77 12/08/23 07:53 94 H 94 12/08/23 07:48 104 H 95 12/08/23 07:43 122 H 96 12/08/23 07:38 108 H 94 12/08/23 07:33 106 H 95 12/08/23 07:30 18 12/08/23 07:30 36.7 C 18 12/08/23 07:28 107 H 98 12/08/23 07:23 106 H 95 12/08/23 07:18 113 H 96 12/08/23 07:13 114 H 97 12/08/23 07:08 115 H 96 12/08/23 07:03 104 H 94 12/08/23 06:58 108 H 137/90 95 12/08/23 06:53 106 H 93 12/08/23 06:48 106 H 93 12/08/23 06:43 108 H 93 12/08/23 06:38 105 H 93 12/08/23 06:33 107 H 94 12/08/23 06:28 110 H 93 12/08/23 06:23 102 H 93 12/08/23 06:18 99 H 94 12/08/23 06:13 103 H 94 12/08/23 06:08 103 H 93 12/08/23 05:57 113 H 132/73 12/08/23 04:04 112 H 146/103 H 12/08/23 03:30 116 H 143/86 H 12/08/23 03:00 36.6 C 12/08/23 00:34 91 H 131/76 12/08/23 00:30 16 12/08/23 00:30 36.6 C 16 12/07/23 19:00 36.6 C 16 12/07/23 18:58 107 H 135/84 12/07/23 15:27 18 12/07/23 15:27 36.6 C 18 12/07/23 15:26 95 H 143/90 H Pain Intensity Abdomen: Pain Intensity: 5 Transfer of Care Handoff Completed per policy Notes Mental Status: alert / awake / arousable and participated in evaluation Patient Amnestic to Procedure: Yes Nausea / Vomiting: adequately controlled Pain: adequately controlled Airway Patency, RR, SpO2: stable & adequate BP & HR: stable & adequate Hydration State: stable & adequate Anesthetic Complications: no major complications apparent and Pt Satisfied with anesthetic care
[2023-12-08] MEDS: KETOROLAC 30 MG/ML VIAL IV PRN (12:42)
[2023-12-08] MEDS: OXYTOCIN 20 UNITS/LR 1,002 ML IV SCH (12:45)
[2023-12-08] MEDS: SIMETHICONE 80 MG CHEW PO SCH (17:20)
[2023-12-08] MEDS: DIPHTHER/TETAN/PERTUS Vaccine (Tdap, Adol/Adult) 0.5mL IM ONE (20:41)
[2023-12-08] MEDS: MEASLES, MUMPS & RUBELLA VIRUS VACCINE (MMR) 0.5ML VIAL SQ ONE (20:41)
[2023-12-08] MEDS: DOCUSATE SODIUM 100 MG CAP PO SCH (20:51)
[2023-12-08] MEDS: MoRPHine SULFATE PF 1 MG/ML 10 ML AMP/VIAL INT SPINAL ONE (21:55)
[2023-12-09] MEDS ORDERED: MEPERIDINE HCL 50 MG/ML CARP IV PRN (03:38)
[2023-12-09] MEDS ORDERED: diphenhydrAMINE 50 MG/ML VIAL IV PRN (03:38)
[2023-12-09] MEDS ORDERED: KETOROLAC 30 MG/ML VIAL IV PRN (03:38)
[2023-12-09] MEDS ORDERED: ONDANSETRON INJ 2 MG/ML 2 ML VIAL IV PRN (03:38)
[2023-12-09] MEDS ORDERED: diphenhydrAMINE Capsule 25 MG CAP PO PRN (03:38)
[2023-12-09] MEDS ORDERED: PROMETHAZINE HCL 25 MG in SODIUM CHLORIDE 0.9% 50 ML IV PRN (03:38)
[2023-12-09] MEDS: SODIUM CHLORIDE 0.9% 1,000 ML IV SCH (04:29)
[2023-12-09] MEDS: LACTATED RINGER'S 1,000 ML IV SCH (04:30)
[2023-12-09 06:44] LABS: Basophils # (auto) 0.07 K/uL (0.00-0.20); Basophils % (auto) 0.5 %; Eosinophils # (auto) 0.09 K/uL (0.00-0.50); Eosinophils % (auto) 0.7 %; Hematocrit (blood only) 37.1 % (37.0-47.0); Hemoglobin 12.5 g/dl (12.0-16.0); Immature Granulocytes # (auto) 0.08 K/uL (0.01-0.20); Immature Granulocytes % (auto) 0.6 %; Lymphocytes % (auto) 13.3 %; Mean Corpuscular Hemoglobin 29.8 pg (25.0-34.0); Mean Corpuscular Hgb Conc 33.7 g/dL (32.0-36.0); Mean Corpuscular Volume 88.5 fL (80.0-100.0); Mean Platelet Volume 11.7 fL (9.4-12.4); Monocytes # (auto) 1.04 K/uL (0.11-0.59); Monocytes % (auto) 7.7 %; Neutrophils # (auto) 10.49 K/uL (1.40-6.50); Neutrophils % (auto) 77.2 %; Platelet Count 192 K/uL (130-400); RDW Coefficient of Variation 14.3 % (11.5-14.5); RDW Standard Deviation 45.5 fL (36.4-46.3); Red Blood Count 4.19 M/uL (4.20-5.40); White Blood Count 13.57 K/ul (4.8-10.8)
[2023-12-09 07:04] LABS: Alanine Aminotransferase 9 U/L (7-52); Albumin Globulin Ratio 1.3 (0.9-2); Alkaline Phosphatase 120 U/L (34-104); Anion Gap 6 (3-11); Aspartate Aminotransferase 17 U/L (13-39); BUN Creatinine Ratio 15.8 (10-20); Bilirubin,Total 0.5 mg/dl (0.2-1.0); Blood Urea Nitrogen 9 mg/dl (6-23); Calcium 8.8 mg/dl (8.6-10.3); Carbon Dioxide 25 mmol/L (21-32); Chloride 107 mmol/L (98-107); Creatinine Clr Calc Pharmacy 178.9 ml/min; Est GFR (African American) > 150.0 ml/min; Est GFR (Non-African American) 130.7 ml/min; Globulin 2.4 gm/dl (2.5-4.0); Glucose 72 mg/dl (70-99(Fasting)); Potassium 3.7 mmol/L (3.5-5.1); Sodium 138 mmol/L (136-145); Total Protein 5.4 gm/dl (6.0-8.3)
[2023-12-09] MEDS: IBUPROFEN 600 MG TAB PO PRN (07:35)
[2023-12-09] MEDS: PRENATAL VITAMIN 1 TAB PO SCH (07:35)
[2023-12-09] MEDS: FERROUS SULFATE 325 MG TAB PO SCH (07:35)
[2023-12-09] MEDS: oxyCODONE/ACETAMINOPHEN 5mg/325mg TAB PO PRN (07:36)
--- NOTE | 2023-12-09 11:05 | Obstetrical Progress Note ---
Date of Service December 09, 2023 Assessment & Plan (1) delivery delivered: POD #1 pt doing well No complaints Subjective Ambulation: ambulating normally Voiding: no voiding problems Passing Gas:: Yes Diet Tolerance:: clear liquids Lochia:: Small Feeding Type:: breast feeding Review of Systems All systems reviewed & are unremarkable except as noted in HPI & below Physical Exam Constitutional WD/WN, vitals as above well developed and well nourished Eyes PERRL, conjunctivae normal, anicteric sclerae ENMT external ear and nose normal, oropharynx normal Neck trachea midline, no thyromegaly Respiratory normal respiratory effort, lungs clear to auscultation Cardiovascular RRR, no murmur, no edema Chest (Breasts) normal inspection/palpation of breasts Gastrointestinal (Abdomen) normal bowel sounds, soft, nontender, no hepatosplenomegaly Musculoskeletal no cyanosis or clubbing, extremities motor strength 5/5 Skin no rashes, warm and dry + incision (Clean,dry and intact) Neurologic patellar DTR's 2+ bilat, sensation intact Psychiatric A+Ox3, euthymic affect Genitourinary normal external appearance Lymphatic no cervical or axillary lymphadenopathy Results & Data Vital Signs (Past 12 Hours) Vital Signs Temp Pulse Resp BP Pulse Ox O2 Del Method 12/09/23 07:37 37.1 C 102 H 18 142/89 H 96 Room Air 12/09/23 03:40 18 92 12/09/23 03:40 37.2 C 106 H 18 135/82 92 Room Air 12/09/23 03:10 18 96 12/09/23 02:10 18 96 12/09/23 01:10 18 99 12/09/23 00:10 18 99 12/09/23 00:05 138/85 12/08/23 23:10 18 99
[2023-12-09] MEDS: bisacodyL 5 MG TABEC PO SCH (20:37)
[2023-12-10 06:40] LABS: Basophils % (auto) 0.8 %; Eosinophils # (auto) 0.23 K/uL (0.00-0.50); Eosinophils % (auto) 1.9 %; Hematocrit (blood only) 35.2 % (37.0-47.0); Immature Granulocytes # (auto) 0.18 K/uL (0.01-0.20); Immature Granulocytes % (auto) 1.5 %; Lymphocytes # (auto) 2.32 K/uL (1.20-3.40); Lymphocytes % (auto) 19.3 %; Mean Corpuscular Hemoglobin 30.3 pg (25.0-34.0); Mean Corpuscular Hgb Conc 34.1 g/dL (32.0-36.0); Mean Corpuscular Volume 88.9 fL (80.0-100.0); Mean Platelet Volume 11.4 fL (9.4-12.4); Monocytes # (auto) 0.99 K/uL (0.11-0.59); Monocytes % (auto) 8.2 %; Neutrophils # (auto) 8.22 K/uL (1.40-6.50); Neutrophils % (auto) 68.3 %; Platelet Count 162 K/uL (130-400); RDW Coefficient of Variation 14.1 % (11.5-14.5); RDW Standard Deviation 45.6 fL (36.4-46.3); Red Blood Count 3.96 M/uL (4.20-5.40); White Blood Count 12.04 K/ul (4.8-10.8)
[2023-12-10 06:59] LABS: Alanine Aminotransferase 10 U/L (7-52); Albumin Globulin Ratio 1.2 (0.9-2); Alkaline Phosphatase 115 U/L (34-104); Anion Gap 6 (3-11); Aspartate Aminotransferase 15 U/L (13-39); BUN Creatinine Ratio 21.2 (10-20); Bilirubin,Total 0.3 mg/dl (0.2-1.0); Blood Urea Nitrogen 11 mg/dl (6-23); Calcium 8.7 mg/dl (8.6-10.3); Carbon Dioxide 24 mmol/L (21-32); Chloride 108 mmol/L (98-107); Creatinine Clr Calc Pharmacy 196.1 ml/min; Est GFR (African American) > 150.0 ml/min; Est GFR (Non-African American) 134.7 ml/min; Globulin 2.6 gm/dl (2.5-4.0); Glucose 76 mg/dl (70-99(Fasting)); Potassium 3.7 mmol/L (3.5-5.1); Sodium 138 mmol/L (136-145); Total Protein 5.6 gm/dl (6.0-8.3)
[2023-12-10] MEDS ORDERED: bisacodyL 10 MG SUPP PR PRN (09:59)
--- NOTE | 2023-12-10 11:05 | Obstetrical Progress Note ---
Date of Service December 10, 2023 Subjective Ambulation: ambulating normally Voiding: no voiding problems Passing Gas:: Yes Diet Tolerance:: regular diet Lochia:: Small Feeding Type:: breast feeding Current Pain Level(1-10): 0 doing well. wants to go home today Physical Exam Constitutional WD/WN, vitals as above Gastrointestinal (Abdomen) Inspection/Auscultation: abdomen normal to inspection and + abdominal surgical incision abdomen soft and non-tender. fundus firm below U Musculoskeletal Extremities: extremities normal to inspection Skin no rashes, warm and dry Neurologic patellar DTR's 2+ bilat, sensation intact Psychiatric A+Ox3, euthymic affect Results & Data Vital Signs (Past 12 Hours) Vital Signs Temp Pulse Resp BP BP Pulse Ox O2 Del Method 12/10/23 08:00 37.1 C 100 H 18 140/88 12/10/23 00:15 36.9 C 102 H 16 126/84 98 Room Air Laboratory Results Laboratory Results - last 48 hr 12/09/23 12/10/23 06:11 06:16 WBC 13.57 H 12.04 H RBC 4.19 L 3.96 L Hgb 12.5 12.0 Hct 37.1 35.2 L MCV 88.5 88.9 MCH 29.8 30.3 MCHC 33.7 34.1 RDW Std Deviation 45.5 45.6 RDW Coeff of Allyson 14.3 14.1 Plt Count 192 162 MPV 11.7 11.4 Immature Gran % (Auto) 0.6 1.5 Neut % (Auto) 77.2 68.3 Lymph % (Auto) 13.3 19.3 [place] % (Auto) 7.7 8.2 Eos % (Auto) 0.7 1.9 Baso % (Auto) 0.5 0.8 Neut # (Auto) 10.49 H 8.22 H Lymph # (Auto) 1.80 2.32 [place] # (Auto) 1.04 H 0.99 H Eos # (Auto) 0.09 0.23 Baso # (Auto) 0.07 0.10 Immature Gran # (Auto) 0.08 0.18 Sodium 138 138 Potassium 3.7 3.7 Chloride 107 108 H Carbon Dioxide 25 24 Anion Gap 6 6 BUN 9 11 Creatinine 0.57 L 0.52 L Est Cr Clr Drug Dosing 178.9 196.1 Est GFR ( Amer) > 150.0 > 150.0 Est GFR (Non-Af Amer) 130.7 134.7 BUN/Creatinine Ratio 15.8 21.2 H Glucose 72 76 Calcium 8.8 8.7 Total Bilirubin 0.5 0.3 AST 17 15 ALT 9 10 Alkaline Phosphatase 120 H 115 H Total Protein 5.4 L 5.6 L Albumin 3.0 L 3.0 L Globulin 2.4 L 2.6 Albumin/Globulin Ratio 1.3 1.2
--- NOTE | 2023-12-15 15:46 | Discharge Summary ---
Date of Service December 15, 2023 Admission HPI Per Admitting Provider Patient is a pleasant 22-year-old -0-1-0 at 40 weeks and 3 days dated by LMP consistent with a 6-week ultrasound. Patient denies contractions, leaking of fluid or vaginal bleeding. Notes good movement. Denies signs or symptoms of preeclampsia. Patient's course has been complicated by with an IUD in which the IUD was removed at early gestation, elevated blood pressure at 37 weeks, he patitis C antibody positive. Patient denies any history of STDs, asthma, diabetes, high blood pressure outside of . Patient has not had excessive weight gain this (61 lbs) Discharge Data Consultations 12/06/23 08:06 Consult Anesthesiology Stat Procedures Performed Operation Date: 12/08/23 08:40 Actual Procedures p Section in LD for living female at 0915(Bilateral) - Angelique Westfall MD Hospital Course (1) delivery delivered: Patient is a 22-year-old G1, P0 at 40 weeks and 2 days of gestation who was admitted for induction of labor for postdates and gestational hypertension. She has received cervical ripening on hospital day #1 and 2. On day 3 FHR was having late decelerations after each contractions. I performed artificial rupture of membranes which revealed dark meconium stained fluid followed by another heart rate deceleration. Decision was made to proceed with emergent delivery via primary . Patient has signed informed consent and taken to the OR. She had primary C- section and delivered a viable with no complications. See dictated op note for details. On postop recovery patient was doing well, vital signs stable afebrile, urine output was adequate. Bleeding was minimal. On postop day #1 patient was doing well, vital signs stable afebrile, she was ambulating, tolerating regular diet and breast-feeding. On POD#2 patient was doing well, vital signs stable, afebrile H&H is stable her physical exam was unremarkable, she desired to be discharged on postop day #2. Discharge instructions were given, prescriptions are written for pain. She is to be seen in office in a week for incision check. All questions were answered. (2) Gestational hypertension:
== END 2023-12-10 13:50 | disposition home or self-care (01) | DRG 788 ==
LOC: 4S1 07:34 → 4E2 12-08 13:00